=== PATIENT | male | born 1995 | race Caucasian/White ===

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

== ENCOUNTER 2017-08-18 23:25 | Inpatient (IN) | payer BC, OTHER ==
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
[2017-08-19 01:26] LABS: Amphetamine Screen,Urine Detected (NotDetected); Barbiturate Screen,Urine Not Detected (NotDetected); Benzodiazepines Screen,Urine Not Detected (NotDetected); Cocaine Screen,Urine Not Detected (NotDetected); Methadone Screen, Urine Not Detected (NotDetected); Opiate Screen,Urine Not Detected (NotDetected); Oxycodone Screen, Urine Not Detected (NotDetected); Phencyclidine Screen,Urine Not Detected (NotDetected); Tricyclic Antidepressant,Urine Not Detected (NotDetected); Urn Cannabinoid Scrn Detected (NotDetected)
[2017-08-19 06:21] VITALS: RESP 16
[2017-08-19] MEDS ORDERED: ZIPRASIDONE 20 MG VIAL IM PRN (09:29)
[2017-08-19] MEDS ORDERED: ACETAMINOPHEN TAB 325 MG TAB PO PRN (09:29)
[2017-08-19] MEDS ORDERED: MAG HYDROX/AL HYDROX/SIMETH 30 ML CUP PO PRN (09:29)
[2017-08-19] MEDS ORDERED: LORazepam 1 MG TAB PO PRN (09:29)
[2017-08-19] MEDS ORDERED: MAGNESIUM HYDROXIDE 2,400 MG/10 ML CUP PO PRN (09:29)
[2017-08-19] MEDS ORDERED: IBUPROFEN 600 MG TAB PO PRN (11:19)
[2017-08-19] MEDS: NICOTINE 21MG/24HR PATCH TRANSDERM SCH (12:31)
--- NOTE | 2017-08-19 15:13 | XR ---
Right hand and right wrist HISTORY: Trauma and pain 3 views of the right hand, 4 views of the right wrist submitted. Small bony excrescence at the level of the physis of the distal right radius at the metaphysis is tho ught to be well-corticated and not likely to be acute, correlate for point tenderness. There is no ev ident dislocation. Alignment, bone mineralization are otherwise maintained. IMPRESSION: Correlate for point tenderness distal radius lateral aspect as described. Bone scan or MR I may be of benefit to assess for nondisplaced fracture. Consider follow-up in 7-10 days as indicated to assess for fracture healing..
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
[2017-08-19] MEDS: busPIRone HCl 5 MG TAB PO SCH (20:18)
[2017-08-20] MEDS: busPIRone HCl 5 MG TAB PO SCH ×2 (08:56→20:48)
[2017-08-20] MEDS: NICOTINE 21MG/24HR PATCH TRANSDERM SCH (08:56)
[2017-08-20 09:39] LABS: Basophils % (A) 1 %; Eosinophils # (A) 0.1 k/uL (0-0.7); Eosinophils % (A) 1 %; HCT 51.2 % (39.0-53.0); HGB 17.5 gm/dL (13.0-17.5); Lymphocytes % (A) 29 %; MCH 31.4 pg (25.0-35.0); MCHC 34.3 g/dL (31.0-37.0); MCV 91.8 fL (80.0-100.0); Mean Platelet Volume 6.7; Monocytes # (A) 0.4 k/uL (0-1.0); Monocytes % (A) 6 %; Neutrophils # (A) 4.3 k/uL (1.3-7.7); Neutrophils % (A) 62 %; Platelet Count 276 k/uL (150-450); RBC 5.58 m/uL (4.30-5.90); RDW 13.1 % (11.5-15.5)
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
[2017-08-20 09:55] LABS: ALT 39 U/L (21-72); AST 36 U/L (17-59); Albumin 4.9 g/dL (3.5-5.0); Alkaline Phosphatase 92 U/L (38-126); Anion Gap 9 mmol/L; Blood Urea Nitrogen 15 mg/dL (9-20); Calcium 10.2 mg/dL (8.4-10.2); Carbon Dioxide 26 mmol/L (22-30); Chloride 105 mmol/L (98-107); Cholesterol 162 mg/dL (<200); Glucose 91 mg/dL (74-99); HDL Cholesterol 73 mg/dL (40-60); LDL Cholesterol,Calculated 70 mg/dL (0-99); Potassium 4.7 mmol/L (3.5-5.1); Sodium 140 mmol/L (137-145); Total Bilirubin 1.2 mg/dL (0.2-1.3); Total Protein 7.5 g/dL (6.3-8.2); Triglycerides 97 mg/dL (<150)
[2017-08-20] MEDS: THIAMINE 100 MG TAB PO SCH (12:15)
[2017-08-20 18:18] LABS: Hemoglobin A1C 4.9 % (4.0-6.0)
[2017-08-21 06:27] VITALS: BP 90/46; PULSE 44; TEMP 97.9
[2017-08-21] MEDS: NICOTINE 21MG/24HR PATCH TRANSDERM SCH (08:18)
[2017-08-21] MEDS: busPIRone HCl 5 MG TAB PO SCH (08:18)
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
[2017-08-21] MEDS: THIAMINE 100 MG TAB PO SCH (12:12)
== END 2017-08-21 13:51 | disposition home or self-care (01) | DRG 885 ==
LOC: EC 23:25 → 3MHU 08-19 09:23
PROVIDERS: ADMIT Psychiatry & Neurology Psychiatry; ATTEND Psychiatry & Neurology Psychiatry
DX: F39 Unspecified mood [affective] disorder (principal); S52.513A Displaced fracture of unspecified radial styloid process, initial encounter for closed fracture; R45.851 Suicidal ideations; F17.200 Nicotine dependence, unspecified, uncomplicated; F41.1 Generalized anxiety disorder; F90.9 Attention-deficit hyperactivity disorder, unspecified type; Z79.899 Other long term (current) drug therapy; Z80.1 Family history of malignant neoplasm of trachea, bronchus and lung; Z80.3 Family history of malignant neoplasm of breast; Z88.2 Allergy status to sulfonamides; Z91.018 Allergy to other foods
CPT/HCPCS: 80053; 80061; 80306; 82075; 83036; 84443; 85025; 99285

== ENCOUNTER 2022-08-24 17:30 | Emergency (ER) | payer BC ==
[2022-08-24] MEDS ORDERED: KETOROLAC 15 MG/ML 1 ML VIAL IM STA (18:02)
--- NOTE | 2022-08-24 18:52 | US ---
EXAMINATION TYPE: US scrotum with doppler. Grayscale and color Doppler Duplex imaging performed of t elías scrotum. DATE OF EXAM: 08/24/2022 COMPARISON: NONE CLINICAL INDICATION: Male, 27 years old with history of L testicular pain; L testicular and groin tali n x 3 days after heavy lifting EXAM MEASUREMENTS: TESTICLES: Right Testicle: 4.5 x 3.1 x 2.6 cm Left Testicle: 4.6 x 2.9 x 2.2 cm EPIDIDYMIS HEAD: Right Epididymis: 1.0 cm Left Epididymis: 1.0 cm Doppler performed to assess for testicular vascularity; good bilateral color flow and waveforms are s een. There is no evidence of testicular torsion. Presence of hydroceles: Small on the left side Presence of varicoceles: Small on the right side. Veins appear more dilated on the left side in juarez scale. IMPRESSION: 1. No evidence for testicular torsion. 2. Small hydroceles bilaterally. 3. Mild varicoceles bilaterally.
[2022-08-24 19:00] VITALS: TEMP 98
[2022-08-24] MEDS ORDERED: HYDROcodone/APAP 7.5-325MG 1 EACH TAB PO ONE (19:28)
--- NOTE | 2022-08-24 19:37 | ED ---
Male Urogenital HPI - General Chief complaint: Urogenital Stated complaint: hernia Time Seen by Provider: 08/24/22 17:53 Source: patient Mode of arrival: ambulatory Limitations: no limitations - History of Present Illness Initial comments: 27-year-old male presenting with chief complaint of right testicular pain. He states that the pain started 2 days ago. He notes that prior to the pain starting he was lifting a heavy objects at work. Patient has no history of hernia. No dysuria, hematuria, discharge, redness, swelling, warmth, groin pain. Denies any sexual partners. - Related Data Previous Rx's Medication Instructions Recorded Nicotine 21Mg/24Hr Patch [Habitrol] 1 patch TRANSDERM DAILY #10 patch 08/21/17 busPIRone HCL 10 mg PO BID #60 tab 08/21/17 Allergies Allergy/AdvReac Type Severity Reaction Status Date / Time macadamia nut oil Allergy Unknown Verified 08/24/22 17:43 Sulfa (Sulfonamide Allergy Unknown Verified 08/24/22 17:43 Antibiotics) Review of Systems ROS Statement: Those systems with pertinent positive or pertinent negative responses have been documented in the HPI. ROS Other: All systems not noted in ROS Statement are negative. Past Medical History Past Medical History: Asthma History of Any Multi-Drug Resistant Organisms: None Reported Past Surgical History: No Surgical Hx Reported Additional Past Surgical History / Comment(s): Repair of third digit of left hand due to injury involving loss of finger, discectomy 2020 Past Anesthesia/Blood Transfusion Reactions: No Reported Reaction Past Psychological History: ADD/ADHD Smoking Status: Current every day smoker Past Alcohol Use History: Occasional Past Drug Use History: Marijuana - Past Family History Father History Unknown: Yes Additional Family Medical History / Comment(s): Family hx of Breast CA, Lung CA, and skin CA General Exam Limitations: no limitations General appearance: alert, in no apparent distress Head exam: Present: atraumatic, normocephalic, normal inspection Eye exam: Present: normal appearance Neck exam: Present: normal inspection, full ROM Respiratory exam: Present: normal lung sounds bilaterally. Absent: respiratory distress, wheezes, rales, rhonchi, stridor Cardiovascular Exam: Present: regular rate, normal rhythm, normal heart sounds. Absent: systolic murmur, diastolic murmur, rubs, gallop, clicks exam: Present: normal inspection, testicular tenderness. Absent: urethral discharge, scrotal swelling Neurological exam: Present: alert, oriented X3, CN II-XII intact Psychiatric exam: Present: normal affect, normal mood Skin exam: Present: warm, dry, intact, normal color. Absent: rash Course Vital Signs 08/24/22 08/24/22 08/24/22 17:41 18:59 20:41 Temperature 98.7 F 98 F 98 F Pulse Rate 79 75 78 Respiratory 18 16 18 Rate Blood Pressure 119/73 121/84 122/74 O2 Sat by Pulse 98 98 98 Oximetry Medical Decision Making - Medical Decision Making Was pt. sent in by a medical professional or institution (, PA, MEAT LOINER, urgent care, hospital, or senior living...) When possible be specific @ -[No] Did you speak to anyone other than the patient for history (EMS, parent, family, police, friend...)? What history was obtained from this source @ -[No] Did you review nursing and triage notes (agree or disagree)? Why? @ -[I reviewed and agree with nursing and triage notes] Were old charts reviewed (outside hosp., previous admission, EMS record, old EKG, old radiological studies, urgent care reports/EKG's, senior living records)? Report findings @ -[No old charts were reviewed] Differential Diagnosis (chest pain, altered mental status, abdominal pain women, abdominal pain men, vaginal bleeding, weakness, fever, dyspnea, syncope, headache, dizziness, GI bleed, back pain, seizure, CVA, palpatations, mental health, musculoskeletal)? @ -Differential includes testicular torsion, varicocele, hydrocele, epididymitis, abscess, hernia, this is not an all inclusive list EKG interpreted by me (3pts min.). @ -[As above] X-rays interpreted by me (1pt min.). @ -[None done] CT interpreted by me (1pt min.). @ -[None done] U/S interpreted by me (1pt. min.). @ -Ultrasound shows hydrocele and varicoceles, no evidence of torsion What testing was considered but not performed or refused? (CT, X-rays, U/S, labs)? Why? @ -[None] What meds were considered but not given or refused? Why? @ -[None] Did you discuss the management of the patient with other professionals (professionals i.e. DrHailee, PA, MEAT LOINER, lab, RT, psych nurse, psychotherapist social worker, continuum of care manager, teacher, chief fundraising officer, rn case manager hospice)? Give summary @ -[No] Was smoking cessation discussed for >3mins.? @ -[No] Was critical care preformed (if so, how long)? @ -[No] Were there social determinants of health that impacted care today? How? (Homelessness, low income, unemployed, alcoholism, drug addiction, transportation, low edu. Level, literacy, decrease access to med. care, [facility], rehab)? @ -[No] Was there de-escalation of care discussed even if they declined (Discuss DNR or withdrawal of care, Hospice)? DNR status @ -[No] What co-morbidities impacted this encounter? (DM, HTN, Smoking, COPD, CAD, Cancer, CVA, ARF, Chemo, Hep., AIDS, mental health diagnosis, sleep apnea, morbid obesity)? @ -[None] Was patient admitted / discharged? Hospital course, mention meds given and route, prescriptions, significant lab abnormalities, going to OR and other pertinent info. @ -27-year-old male presenting with chief complaint of left-sided testicular pain ongoing for 2 days. On physical examination there is tenderness, no erythema, induration, high riding testicle. Ultrasound is negative for torsion, there are varicoceles and hydrocele seen. Urine shows no infectious process. Patient is educated on today's findings. Educated on supportive management at home and is provided with urology follow-up as needed. Follow-up with PCP. Report back to ER with any new or worsening symptoms. Discussed return parameters and answered all questions. Patient conveyed verbal understanding and agreed to the plan. I discussed this case in detail with my attending Dr. Juan Undiagnosed new problem with uncertain prognosis? @ -[No] Drug Therapy requiring intensive monitoring for toxicity (Heparin, Nitro, Insulin, Cardizem)? @ -[No] Were any procedures done? @ -[No] Diagnosis/symptom? @ Hydrocele and varicoceles] Acute, or Chronic, or Acute on Chronic? @ Acute] Uncomplicated (without systemic symptoms) or Complicated (systemic symptoms)? @ uncomplicated] Side effects of treatment? @ -[No] Exacerbation, Progression, or Severe Exacerbation? @ -[No] Poses a threat to life or bodily function? How? (Chest pain, [place], SD, pneumonia, PE, COPD, DKA, ARF, appy, cholecystitis, CVA, Diverticulitis, Homicidal, Suicidal, threat to staff... and all critical care pts) @ -[No] - Lab Data Lab Results 08/24/22 Range/Units 19:43 Urine Color Yellow Urine Appearance Clear (Clear) Urine pH 7.0 (5.0-8.0) Ur Specific Keyser 1.022 (1.001-1.035) Urine Protein Trace H (Negative) Urine Glucose (UA) Negative (Negative) Urine Ketones Negative (Negative) Urine Blood Negative (Negative) Urine Nitrite Negative (Negative) Urine Bilirubin Negative (Negative) Urine Urobilinogen 3.0 (<2.0) mg/dL Ur Leukocyte Esterase Negative (Negative) Disposition Clinical Impression: Varicocele, Hydrocele Disposition: HOME SELF-CARE Condition: Good Instructions (If sedation given, give patient instructions): Hydrocele (ED), Varicocele (ED), Testicle Pain (ED) Additional Instructions: Follow-up with PCP. Follow up with urology if needed. Report back to ER with any new or worsening symptoms. Take Motrin and Tylenol as needed for pain control. Is patient prescribed a controlled substance at d/c from ED?: No Referrals: None,Stated [Primary Care Provider] - 1-2 days Braden Gifford MD [STAFF PHYSICIAN] - 1-2 days Time of Disposition: 20:25
[2022-08-24 20:23] LABS: Appearance,Urine Clear (Clear); Bilirubin,Urine Negative (Negative); Blood,Urine Negative (Negative); Color,Urine Yellow; Glucose,Urine (UA) Negative (Negative); Ketones,Urine Negative (Negative); Leukocyte Esterase,Urine Negative (Negative); Nitrite,Urine Negative (Negative); Protein,Urine Trace (Negative); Specific Gravity,Urine 1.022 (1.001-1.035)
[2022-08-24 20:41] VITALS: BP 122/74; PULSE 78; RESP 18
== END 2022-08-24 20:41 | disposition home or self-care (01) ==
LOC: EC 17:30
DX: N43.3 Hydrocele, unspecified (principal); I86.1 Scrotal varices; J45.909 Unspecified asthma, uncomplicated; F17.200 Nicotine dependence, unspecified, uncomplicated; F12.90 Cannabis use, unspecified, uncomplicated; Z88.2 Allergy status to sulfonamides; Z91.018 Allergy to other foods
CPT/HCPCS: 81003; 93975; 76870; 99284; 96372; J1885

== ENCOUNTER 2022-11-12 18:44 | Emergency (ER) | payer BC ==
[2022-11-12] MEDS ORDERED: KETOROLAC 15 MG/ML 1 ML VIAL IM STA (19:19)
[2022-11-12 19:34] VITALS: BP 132/75; PULSE 96; RESP 16; TEMP 98
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
--- NOTE | 2022-11-12 19:55 | XR ---
EXAMINATION TYPE: XR cervical spine comp DATE OF EXAM: 11/12/2022 7:37 PM CLINICAL INDICATION:Male, 27 years old with history of left shoulder/neck pain; COMPARISON: None TECHNIQUE: The cervical spine was imaged in frontal, lateral, odontoid and bilateral oblique. FINDINGS: Postsurgical changes to the spine at C5-C6 hardware appears intact. There is minimal degene ration with osteophyte formation. The osseous structures show normal alignment without evidence of an acute fracture. Pedicles are intact. Soft tissues are within normal limits. The odontoid appears in tact. IMPRESSION: 1. No fracture or dislocation. 2. Postsurgical changes with minimal degenerative disc disease changes of the cervical spine.
--- NOTE | 2022-11-12 19:55 | XR ---
EXAMINATION TYPE: XR shoulder complete LT DATE OF EXAM: 11/12/2022 7:37 PM CLINICAL INDICATION:Male, 27 years old with history of left shoulder/neck pain; [facility] COMPARISON: None TECHNIQUE: XR shoulder complete LT; shoulder was examined in AP, internally rotated and scapular Y p rojections. FINDINGS: No evidence of acute osseous pathology, joint dislocation, or soft tissue swelling. The remaining por tions of the visualized chest are unremarkable. IMPRESSION: No acute osseous pathology.
== END 2022-11-12 20:49 | disposition home or self-care (01) ==
LOC: EC 18:44
DX: M25.512 Pain in left shoulder (principal); M54.2 Cervicalgia; J45.909 Unspecified asthma, uncomplicated; F17.200 Nicotine dependence, unspecified, uncomplicated; F12.90 Cannabis use, unspecified, uncomplicated; Z88.2 Allergy status to sulfonamides; Z88.8 Allergy status to other drugs, medicaments and biological substances
CPT/HCPCS: 72050; 73030; 99283; 96372; J1885

== ENCOUNTER 2024-04-24 18:23 | Inpatient (IN) | payer BC ==
--- NOTE | 2024-04-24 19:21 | ED ---
Neck Injury/Pain HPI - General Chief Complaint: Neck Pain/Injury Stated Complaint: Neck pain Time Seen by Provider: 04/24/24 19:04 Source: RN notes reviewed, old records reviewed Mode of arrival: ambulatory Limitations: no limitations - History of Present Illness Initial Comments: This is a 28-year-old male to the ER for severe neck pain anterior neck pain right-sided neck pain redness tenderness swelling, patient does feel feverish sore throat unable to eat or drink because he has so much pain in his throat MD Complaint: neck pain, neck injury (Patient does have a scratch on his anterior neck unsure of how he got it) -: days(s) Place: home Radiation: right lateral, right shoulder Severity: severe Severity scale (1-10): 6 Quality: burning, sharp, aching Consistency: constant Improves With: none Associated Symptoms: fever Treatments Prior to Arrival: none - Related Data Previous Rx's Medication Instructions Recorded Amoxic-Pot Clav 875-125Mg 1 tab PO Q12HR 10 Days #20 tab 04/30/24 [Augmentin 875-125] HYDROcodone/APAP 5-325MG [Waldron 1 each PO Q4HR PRN #18 tab 04/30/24 5-325] Linezolid [Zyvox] 600 mg PO Q12H #20 tab 04/30/24 Allergies Allergy/AdvReac Type Severity Reaction Status Date / Time macadamia nut oil Allergy Unknown Verified 04/30/24 14:43 Sulfa (Sulfonamide Allergy Unknown Verified 04/30/24 14:43 Antibiotics) Childhood Review of Systems ROS Statement: Those systems with pertinent positive or pertinent negative responses have been documented in the HPI. ROS Other: All systems not noted in ROS Statement are negative. Past Medical History Past Medical History: Asthma History of Any Multi-Drug Resistant Organisms: None Reported Past Surgical History: No Surgical Hx Reported Additional Past Surgical History / Comment(s): Repair of third digit of left hand due to injury involving loss of finger, discectomy 2020 Past Anesthesia/Blood Transfusion Reactions: No Reported Reaction Past Psychological History: ADD/ADHD Smoking Status: Current every day smoker Past Alcohol Use History: Occasional Past Drug Use History: Marijuana - Past Family History Father History Unknown: Yes Additional Family Medical History / Comment(s): Family hx of Breast CA, Lung CA, and skin CA General Exam Limitations: no limitations General appearance: alert, in no apparent distress, anxious Head exam: Present: atraumatic, normocephalic, normal inspection Eye exam: Present: normal appearance, PERRL, EOMI. Absent: scleral icterus, conjunctival injection, periorbital swelling ENT exam: Present: normal exam, other (Significant swelling redness erythema and tenderness to the right aspect of his neck) Neck exam: Present: tenderness, lymphadenopathy. Absent: meningismus, full ROM Respiratory exam: Present: normal lung sounds bilaterally. Absent: respiratory distress, wheezes, rales, rhonchi, stridor Cardiovascular Exam: Present: normal rhythm, tachycardia, normal heart sounds. Absent: systolic murmur, diastolic murmur, rubs, gallop, clicks GI/Abdominal exam: Present: soft, normal bowel sounds. Absent: distended, tenderness, guarding, rebound, rigid Extremities exam: Present: normal inspection, full ROM, normal capillary refill. Absent: tenderness, pedal edema, joint swelling, calf tenderness Back exam: Present: normal inspection Neurological exam: Present: alert, oriented X3, CN II-XII intact Psychiatric exam: Present: normal affect, normal mood Skin exam: Present: warm, dry, intact, normal color. Absent: rash Course Vital Signs 04/24/24 04/24/24 04/24/24 18:55 20:45 22:12 Temperature 99.7 F H 99.3 F Pulse Rate 112 H 82 65 Respiratory 18 15 17 Rate Blood Pressure 112/59 130/58 122/59 O2 Sat by Pulse 98 96 96 Oximetry 04/25/24 04/25/24 04/25/24 02:18 05:27 05:33 Temperature 98.7 F 100.6 F H Pulse Rate 85 88 Respiratory 16 18 Rate Blood Pressure 112/65 141/73 O2 Sat by Pulse 98 97 Oximetry 04/25/24 04/25/24 04/25/24 06:41 09:00 13:51 Temperature 98.6 F 98.6 F Pulse Rate 71 78 Respiratory 18 18 Rate Blood Pressure 118/54 116/74 O2 Sat by Pulse 98 98 Oximetry - Reevaluation(s) Reevaluation #1: 04/24/24 20:11 Medical records reviewed Reevaluation #2: 04/24/24 20:11 Patient symptoms improved Reevaluation #3: Patient informed of results and questions answered Reevaluation #4: Was pt. sent in by a medical professional or institution ([facility], [employer]EL[employer], urgent care, hospital, or longterm...) When possible be specific @ -no Did you speak to anyone other than the patient for history (EMS, parent, family, police, friend...)? What history was obtained from this source @ -no Did you review nursing and triage notes (agree or disagree)? Why? @ -agree Are old charts reviewed (outside hosp., previous admission, EMS record, old EKG, old radiological studies, urgent care reports/EKG's, longterm records)? Report findings @ -yes Differential Diagnosis (chest pain, altered mental status, abdominal pain women, abdominal pain men, vaginal bleeding, weakness, fever, dyspnea, syncope, headache, dizziness, GI bleed, back pain, seizure, CVA, palpatations, mental health, musculoskeletal)? @ -prior EKG interpreted by me (3pts min.). @ -yes X-rays interpreted by me (1pt min.). @ -no CT interpreted by me (1pt min.). @ -Yes positive for significant right-sided neck cellulitis U/S interpreted by me (1pt. min.). @ -no What testing was considered but not performed or refused? (CT, X-rays, U/S, labs)? Why? @ -none What meds were considered but not given or refused? Why? @ -none Did you discuss the management of the patient with other professionals (professionals i.e. [facility] Andujar, TEAMSITE DEVELOPER, lab, RT, psych nurse, social service director, application performance engineer, teacher, environmental officer, special education case manager)? Give summary @ -no Was smoking cessation discussed for >3mins.? @ -no Was critical care preformed (if so, how long)? @ -no Were there social determinants of health that impacted care today? How? (Homelessness, low income, unemployed, alcoholism, drug addiction, transportation, low edu. Level, literacy, decrease access to med. care, alf, re hab)? @ -none Was there de-escalation of care discussed even if they declined (Discuss DNR or withdrawal of care, Hospice)? DNR status @ -no What co-morbidities impacted this encounter? (DM, HTN, Smoking, COPD, CAD, Cancer, CVA, ARF, Chemo, Hep., AIDS, mental health diagnosis, sleep apnea, morbid obesity)? @ -none Was patient admitted / discharged? Hospital course, mention meds given and route, prescriptions, significant lab abnormalities, going to OR and other pertinent info. @ - 28 male with neck pain swelling redness erythema tenderness pain severe feels feverish, patient does have significant cellulitis to the neck, patient does have a scratch there is unsure of how that happened. Could be because of infection. Patient placed on IV antibiotics and admitted for surgical evaluation regarding further treatment Admitted Undiagnosed new problem with uncertain prognosis? @ -no Drug Therapy requiring intensive monitoring for toxicity (Heparin, Nitro, Insulin, Cardizem)? @ -no Were any procedures done? @ -no Diagnosis/symptom? @ -Significant neck pain, cellulitis Acute, or Chronic, or Acute on Chronic? @ -Acute Uncomplicated (without systemic symptoms) or Complicated (systemic symptoms)? @ -Complicated Side effects of treatment? @ -no Exacerbation, Progression, or Severe Exacerbation? @ -exacerbation Poses a threat to life or bodily function? How? (Chest pain, [place], [place], pneumonia, PE, COPD, DKA, ARF, appy, cholecystitis, CVA, Diverticulitis, Homicidal, Suicidal, threat to staff... and all critical care pts) @ -yes severe in for Reevaluation #5: Differential Fever: Pneumonia, viral URI, endocarditis, myocarditis, pericarditis, otitis, s inusitis, peritonsillar Abscess, retropharyngeal Abscess, epiglottitis, peritonitis, appendicitis, Sunitha cystitis, diverticulitis, hepatitis, colitis, UTI, PID, TOA, pyelonephritis, prostatitis, epididymitis, meningitis, encephalitis, pulmonary embolism, CVA, thyroid storm, pancreatitis, adrenal cri sis, cavernous sinus thrombosis, this is not meant to be an all-inclusive list. - Consultations Consultation #1: Spoke with admitting physicians who agreed this admission Medical Decision Making - Medical Decision Making 28 male with neck pain swelling redness erythema tenderness pain severe feels feverish, patient does have significant cellulitis to the neck, patient does have a scratch there is unsure of how that happened. Could be because of infection. Patient placed on IV antibiotics and admitted for surgical evaluation regarding further treatment - Lab Data Result diagrams: 04/30/24 05:12 04/30/24 05:12 Lab Results 04/24/24 04/24/24 04/24/24 Range/Units 19:50 19:50 19:50 WBC 37.3 H (3.8-10.6) k/uL RBC 5.15 (4.30-5.90) m/uL Hgb 15.5 (13.0-17.5) gm/dL Hct 44.8 (39.0-53.0) % MCV 87.0 (80.0-100.0) fL MCH 30.1 (25.0-35.0) pg MCHC 34.5 (31.0-37.0) g/dL RDW 12.8 (11.5-15.5) % Plt Count 230 (150-450) k/uL MPV 7.3 Neutrophils % 95 % Lymphocytes % 2 % Monocytes % 3 % Eosinophils % 1 % Basophils % 0 % Neutrophils # 35.4 H (1.3-7.7) k/uL Lymphocytes # 0.7 L (1.0-4.8) k/uL Monocytes # 1.0 (0-1.0) k/uL Eosinophils # 0.2 (0-0.7) k/uL Basophils # 0.0 (0-0.2) k/uL Manual Slide Review Performed PT 12.4 (10.0-12.5) sec INR 1.1 (<1.2) APTT 23.5 (22.0-30.0) sec Sodium 135 L (137-145) mmol/L Potassium 4.0 (3.5-5.1) mmol/L Chloride 102 (98-107) mmol/L Carbon Dioxide 20 L (22-30) mmol/L Anion Gap 13 mmol/L BUN 12 (9-20) mg/dL Creatinine 1.02 (0.66-1.25) mg/dL Est GFR (CKD-EPI)AfAm >90 (>60 ml/min/1.73 sqM) Est GFR (CKD-EPI)NonAf >90 (>60 ml/min/1.73 sqM) Glucose 123 H (74-99) mg/dL Plasma Lactic Acid Brady (0.7-2.0) mmol/L Calcium 9.8 (8.4-10.2) mg/dL Phosphorus 2.2 L (2.5-4.5) mg/dL Magnesium 1.8 (1.6-2.3) mg/dL Total Bilirubin 0.7 (0.2-1.3) mg/dL AST 22 (17-59) U/L ALT 15 (4-49) U/L Alkaline Phosphatase 89 (38-126) U/L Troponin I (0.000-0.034) ng/mL C-Reactive Protein 18.0 H (<1.0) mg/dL NT-Pro-B Natriuret Pep 449 pg/mL Total Protein 7.0 (6.3-8.2) g/dL Albumin 4.4 (3.5-5.0) g/dL 04/24/24 04/24/24 04/24/24 Range/Units 19:50 19:50 19:50 WBC (3.8-10.6) k/uL RBC (4.30-5.90) m/uL Hgb (13.0-17.5) gm/dL Hct (39.0-53.0) % MCV (80.0-100.0) fL MCH (25.0-35.0) pg MCHC (31.0-37.0) g/dL RDW (11.5-15.5) % Plt Count (150-450) k/uL MPV Neutrophils % % Lymphocytes % % Monocytes % % Eosinophils % % Basophils % % Neutrophils # (1.3-7.7) k/uL Lymphocytes # (1.0-4.8) k/uL Monocytes # (0-1.0) k/uL Eosinophils # (0-0.7) k/uL Basophils # (0-0.2) k/uL Manual Slide Review PT (10.0-12.5) sec INR (<1.2) APTT (22.0-30.0) sec Sodium (137-145) mmol/L Potassium (3.5-5.1) mmol/L Chloride (98-107) mmol/L Carbon Dioxide (22-30) mmol/L Anion Gap mmol/L BUN (9-20) mg/dL Creatinine 0.99 (0.66-1.25) mg/dL Est GFR (CKD-EPI)AfAm >90 (>60 ml/min/1.73 sqM) Est GFR (CKD-EPI)NonAf >90 (>60 ml/min/1.73 sqM) Glucose (74-99) mg/dL Plasma Lactic Acid Brady 1.6 (0.7-2.0) mmol/L Calcium (8.4-10.2) mg/dL Phosphorus (2.5-4.5) mg/dL Magnesium (1.6-2.3) mg/dL Total Bilirubin (0.2-1.3) mg/dL AST (17-59) U/L ALT (4-49) U/L Alkaline Phosphatase (38-126) U/L Troponin I <0.012 (0.000-0.034) ng/mL C-Reactive Protein (<1.0) mg/dL NT-Pro-B Natriuret Pep pg/mL Total Protein (6.3-8.2) g/dL Albumin (3.5-5.0) g/dL - EKG Data -: EKG Interpreted by Me (EKG sinus 97 IL 143 QRS 104 QTc 386) - Radiology Data Radiology results: report reviewed (CT soft tissue neck positive for fat stranding cellulitis), image reviewed Disposition Clinical Impression: Neck pain, Cellulitis, neck, Alcohol use disorder Disposition: ADMITTED IP TO THIS HOSP Condition: Fair Is patient prescribed a controlled substance at d/c from ED?: No Time of Disposition: 21:40
[2024-04-24] MEDS: LACTATED RINGERS 1,000 ML IV SCH (19:48)
[2024-04-24] MEDS: KETOROLAC 15 MG/ML 1 ML VIAL IVP STA (19:48)
[2024-04-24] MEDS: ACETAMINOPHEN IV (For NPO) 1,000 MG in EMPTY BAG 1 BAG IVPB STA (19:50)
[2024-04-24 20:14] LABS: INR 1.1 (<1.2); Partial Thromboplastin Time 23.5 sec (22.0-30.0); Prothrombin Time 12.4 sec (10.0-12.5)
[2024-04-24 20:20] LABS: Basophils % (A) 0 %; Eosinophils # (A) 0.2 k/uL (0-0.7); Eosinophils % (A) 1 %; HCT 44.8 % (39.0-53.0); HGB 15.5 gm/dL (13.0-17.5); Lymphocytes # (A) 0.7 k/uL (1.0-4.8); Lymphocytes % (A) 2 %; MCH 30.1 pg (25.0-35.0); MCHC 34.5 g/dL (31.0-37.0); Mean Platelet Volume 7.3; Monocytes % (A) 3 %; Neutrophils # (A) 35.4 k/uL (1.3-7.7); Neutrophils % (A) 95 %; Platelet Count 230 k/uL (150-450); RBC 5.15 m/uL (4.30-5.90); RDW 12.8 % (11.5-15.5); WBC 37.3 k/uL (3.8-10.6)
[2024-04-24 20:21] LABS: ALT 15 U/L (4-49); AST 22 U/L (17-59); African American GFR (CKD) >90 (>60 ml/min/1.73 sqM); Albumin 4.4 g/dL (3.5-5.0); Alkaline Phosphatase 89 U/L (38-126); Anion Gap 13 mmol/L; Blood Urea Nitrogen 12 mg/dL (9-20); Calcium 9.8 mg/dL (8.4-10.2); Carbon Dioxide 20 mmol/L (22-30); Chloride 102 mmol/L (98-107); Glucose 123 mg/dL (74-99); Magnesium 1.8 mg/dL (1.6-2.3); Non-African American GFR(CKD) >90 (>60 ml/min/1.73 sqM); Phosphorus 2.2 mg/dL (2.5-4.5); Sodium 135 mmol/L (137-145); Total Bilirubin 0.7 mg/dL (0.2-1.3)
[2024-04-24 20:27] LABS: NT-Pro-B-Type Natriuretic Pept 449 pg/mL
[2024-04-24] MEDS ORDERED: VANCOMYCIN IV PER PHARMACY 1 EACH MISC MISCELLANE PRN (20:39)
[2024-04-24] MEDS: MORPHINE SULFATE 4 MG/ML SYRINGE IVP STA (20:46)
[2024-04-24] MEDS: AMPICILLIN-SULBACTAM 3 GM in SODIUM CHLORIDE 0.9% 100 ML IVPB STA (21:17)
[2024-04-24] MEDS: VANCOMYCIN 1,500 MG in SODIUM CHLORIDE 0.9% 500 ML 500 ML IVPB ONE (22:00)
--- NOTE | 2024-04-25 00:10 | CT ---
EXAM: CT Neck With Intravenous Contrast CLINICAL HISTORY: ITS.REASON CT Reason: R neck pain TECHNIQUE: Axial computed tomography images of the neck with intravenous contrast. CTDI is 11.4 mGy and DLP is 304.9 mGy-cm. This CT exam was performed using one or more of the following dose reduction techniques: automated exposure control, adjustment of the mA and/or kV according to patient size, and/or use of iterative reconstruction technique. COMPARISON: No relevant prior studies available. FINDINGS: Nasal cavity/septum: Unremarkable. Nasopharynx: Unremarkable. Oropharynx: Prominent faucial and lingual tonsils. No peritonsillar abscess. Hypopharynx: Unremarkable. Larynx: Unremarkable. Normal epiglottis. Trachea: Unremarkable. Retropharyngeal space: Unremarkable. Submandibular/parotid glands: Unremarkable. Glands are normal in size. Thyroid: Unremarkable. No enlarged or calcified nodules. Bones/joints: No acute fracture. Intervertebral disc replacement at C5-6. Soft tissues: Moderate subcutaneous fat stranding over the right anterior and lateral cervical soft tissues. Vasculature: No acute findings. Lymph nodes: Unremarkable. No lymphadenopathy. Sinuses: Unremarkable as visualized. No acute sinusitis. Lung apices: Unremarkable as visualized. IMPRESSION: Moderate subcutaneous fat stranding of the right anterior and lateral cervical soft tissues without evidence of abscess or drainable fluid collection. Prominent Faucial and lingual with prominent cervical lymph nodes. No evidence of peritonsillar abscess.
--- NOTE | 2024-04-25 00:16 | P.HPIM ---
History of Present Illness H&P Date: 04/24/24 Chief Complaint: right neck swelling 28-year-old male no significant past medical history Patient coming in for evaluation of severe pain of his neck with right-sided neck swelling and erythema patient claims that this happened overnight he would not be able to tell what precipitated this episode however 1 week ago he had flulike symptoms with sore throat and runny nose. However overnight he started having the symptoms of neck stiffness with increasing pain and progressed into increased swelling and erythema for which she decided to come in for evaluation he denies any trouble swallowing or breathing denies any photophobia denies any headache denies any injuries he does report history of neck surgery in the past. He does admit to cocaine abuse in = the past however he claims to be clean for a while now review of systems Pertinent positives as noted in HPI. All other systems were reviewed and are negative on exam Constitutional: Patient seems uncomfortable stressed out because minimal talking due to pain in his neck Eyes: Anicteric sclerae, moist conjunctiva, Pupils equal round reactive to light ENMT: NC/AT Oropharynx clear, no erythema, or exudates Neck: Erythema and swelling over the right side of the neck tender to palpation warm to the touch not draining no open wounds, patient seems to be stiff holding position due to painful range of motion of the neck Lungs: Clear to auscultation Clear to percussion Normal respiratory effort, no accessory muscle use Cardiovascular: Heart regular in rate and rhythm, No murmurs, gallops, or rubs No peripheral edema Abdominal: Soft Nontender, no guarding, rebound or rigidity Abdomen moving with respiration Normoactive bowel sounds Extremities: No digital cyanosis No clubbing Pedal pulses intact and symmetrical Radial pulses intact and symmetrical No calf tenderness Psychiatric: Alert and oriented to person, place and time Appropriate affect fair judgement Neuro Muscles Strength 5/5 in all 4 extremities Sensation to light touch grossly present throughout Cranial nerves II-XII grossly intact Past Medical History Past Medical History: Asthma History of Any Multi-Drug Resistant Organisms: None Reported Past Surgical History: No Surgical Hx Reported Additional Past Surgical History / Comment(s): Repair of third digit of left hand due to injury involving loss of finger, discectomy 2020 Past Anesthesia/Blood Transfusion Reactions: No Reported Reaction Past Psychological History: ADD/ADHD Smoking Status: Current every day smoker Past Alcohol Use History: Occasional Past Drug Use History: Marijuana - Past Family History Father History Unknown: Yes Additional Family Medical History / Comment(s): Family hx of Breast CA, Lung CA, and skin CA Medications and Allergies Home Medications Medication Instructions Recorded Confirmed Type Nicotine 21Mg/24Hr Patch [Habitrol] 1 patch TRANSDERM DAILY #10 patch 08/21/17 Rx busPIRone HCL 10 mg PO BID #60 tab 08/21/17 Rx Allergies Allergy/AdvReac Type Severity Reaction Status Date / Time macadamia nut oil Allergy Unknown Verified 08/24/22 17:43 Sulfa (Sulfonamide Allergy Unknown Verified 08/24/22 17:43 Antibiotics) Physical Exam Vitals: Vital Signs Temp Pulse Resp BP Pulse Ox 04/24/24 22:12 99.3 F 65 17 122/59 96 04/24/24 20:45 82 15 130/58 96 04/24/24 18:55 99.7 F H 112 H 18 112/59 98 Intake and Output 04/24/24 04/24/24 04/25/24 14:59 22:59 06:59 Other: Weight 81.647 kg Results CBC & Chem 7: 04/24/24 19:50 04/24/24 19:50 Labs: Abnormal Lab Results - Last 24 Hours (Table) 04/24/24 04/24/24 Range/Units 19:50 19:50 WBC 37.3 H (3.8-10.6) k/uL Neutrophils # 35.4 H (1.3-7.7) k/uL Lymphocytes # 0.7 L (1.0-4.8) k/uL Sodium 135 L (137-145) mmol/L Carbon Dioxide 20 L (22-30) mmol/L Glucose 123 H (74-99) mg/dL Phosphorus 2.2 L (2.5-4.5) mg/dL C-Reactive Protein 18.0 H (<1.0) mg/dL Assessment and Plan Assessment: 28-year-old male with history of cocaine abuse coming in for evaluation of neck pain and erythema hide discussed case with ED doctor and accepted the admission for sepsis secondary to cellulitis of the neck with anticipated length stay more than 2 midnights Sepsis secondary to cellulitis of the right side of the neck CT scan of the neck soft tissue is pending Follow-up cultures Patient empirically started on vancomycin dosing by pharmacy Tylenol IV as needed for fevers IV fluid hydration with normal saline 2 L boluses sepsis protocol, continue with 130 cc/h Empirically start Unasyn 3 g IV piggyback every 6 hours, if CT scan of the neck shows no abscess collection then discontinue Elevated white count 37.3 elevated CRP 18 Pain control with morphine 4 mg IV push every 4 hours as needed Full code DVT prophylaxis Lovenox subcu 40 mg daily GI prophylaxis Protonix 40 mg IV push daily Renal function unremarkable BUN 12 creatinine 1
[2024-04-25] MEDS ORDERED: VANCOMYCIN IV PER PHARMACY 1 EACH MISC MISCELLANE PRN (00:20)
[2024-04-25] MEDS: KETOROLAC 15 MG/ML 1 ML VIAL IVP PRN (00:25)
[2024-04-25] MEDS: SODIUM CHLORIDE 0.9% 1,000 ML IV SCH ×2 (00:26→00:54)
[2024-04-25 03:24] LABS: African American GFR (CKD) >90 (>60 ml/min/1.73 sqM); Non-African American GFR(CKD) >90 (>60 ml/min/1.73 sqM)
[2024-04-25] MEDS: AMPICILLIN-SULBACTAM 3 GM in SODIUM CHLORIDE 0.9% 100 ML IVPB SCH ×2 (04:41→20:34)
[2024-04-25] MEDS: MORPHINE SULFATE 4 MG/ML SYRINGE IVP PRN (05:30)
[2024-04-25] MEDS: ACETAMINOPHEN IV (For NPO) 1,000 MG in EMPTY BAG 1 BAG IVPB PRN (05:51)
[2024-04-25] MEDS: VANCOMYCIN 1,500 MG in SODIUM CHLORIDE 0.9% 500 ML 500 ML IVPB SCH (05:51)
[2024-04-25 08:50] LABS: HCT 41.4 % (39.0-53.0); HGB 13.7 gm/dL (13.0-17.5); MCH 29.6 pg (25.0-35.0); MCV 89.7 fL (80.0-100.0); Platelet Count 186 k/uL (150-450); RBC 4.62 m/uL (4.30-5.90)
[2024-04-25] MEDS: PANTOPRAZOLE 40 MG TABLET PO SCH (09:20)
[2024-04-25] MEDS: ENOXAPARIN 40 MG/0.4 ML SYRINGE SQ SCH (09:20)
[2024-04-25 09:22] LABS: ALT 18 U/L (4-49); AST 30 U/L (17-59); African American GFR (CKD) >90 (>60 ml/min/1.73 sqM); Albumin/Globulin Ratio 1.3; Alkaline Phosphatase 76 U/L (38-126); Anion Gap 5 mmol/L; Blood Urea Nitrogen 10 mg/dL (9-20); Calcium 8.7 mg/dL (8.4-10.2); Carbon Dioxide 24 mmol/L (22-30); Chloride 106 mmol/L (98-107); Globulin 2.4 g/dL; Glucose 107 mg/dL (74-99); Magnesium 1.9 mg/dL (1.6-2.3); Non-African American GFR(CKD) >90 (>60 ml/min/1.73 sqM); Potassium 3.9 mmol/L (3.5-5.1); Sodium 135 mmol/L (137-145); Total Bilirubin 0.5 mg/dL (0.2-1.3); Total Protein 5.4 g/dL (6.3-8.2)
[2024-04-25 09:32] LABS: C Reactive Protein 26.7 mg/dL (<1.0)
[2024-04-25 11:16] LABS: Amphetamine Screen,Urine Not Detected (NotDetected); Barbiturate Screen,Urine Not Detected (NotDetected); Benzodiazepines Screen,Urine Not Detected (NotDetected); Cocaine Screen,Urine Not Detected (NotDetected); Methadone Screen, Urine Not Detected (NotDetected); Opiate Screen,Urine Detected (NotDetected); Oxycodone Screen, Urine Not Detected (NotDetected); Phencyclidine Screen,Urine Not Detected (NotDetected); Tricyclic Antidepressant,Urine Not Detected (NotDetected); Urn Cannabinoid Scrn Detected (NotDetected)
[2024-04-25 15:21] LABS: Erythrocyte Sedimentation Rate 17 mm/Hr (0-15)
--- NOTE | 2024-04-25 16:06 | P.CONS ---
History of Present Illness - Reason for Consult Consult date: 04/25/24 Cellulitis neck, sepsis Requesting physician: Rainer Geiger - Chief Complaint Right-sided neck pain and swelling x 1 day - History of Present Illness Patient is a 28-year male with a past medical history significant for asthma ADHD currently everyday smoker presenting to the hospital for evaluation of right-sided neck swelling and redness that apparently happened overnight patient mentioned started a small pimple and has subsequently got bigger in size very quickly patient been complaining of pain to be sharp almost 10 of 10 in severity without any radiation he did have more pain on movement of the neck did have chills on presentation the hospital he did have a fever of 99.7 degrees for night subsequent temperature of 100.6 F patient was tachycardic but not hypotensive or hypoxic no need for supplemental oxygen he did have white count of 37.0 admission which is down to 23,000 creatinine 0.80 electrolytes are normal liver enzymes normal patient did tested positive for opiates and marijuana did have a CT of the soft tissue of the neck mention moderate subcutaneous fat stranding on the right anterior and lateral cervical soft tissue without any evidence of abscess or drainable fluid patient has been treated with vancomycin and Unasyn infectious he was consulted for further management of antibiotic therapy Review of Systems Positive point and negatives has been mentioned in the HPI, complete review of systems was performed and all other systems are negative Past Medical History Past Medical History: Asthma History of Any Multi-Drug Resistant Organisms: None Reported Past Surgical History: No Surgical Hx Reported Additional Past Surgical History / Comment(s): Repair of third digit of left hand due to injury involving loss of finger, discectomy 2020 Past Anesthesia/Blood Transfusion Reactions: No Reported Reaction Past Psychological History: ADD/ADHD Smoking Status: Current every day smoker Past Alcohol Use History: Occasional Past Drug Use History: Marijuana - Past Family History Father History Unknown: Yes Additional Family Medical History / Comment(s): Family hx of Breast CA, Lung CA, and skin CA Medications and Allergies Home Medications Medication Instructions Recorded Confirmed Type No Known Home Medications 04/25/24 04/25/24 History Allergies Allergy/AdvReac Type Severity Reaction Status Date / Time macadamia nut oil Allergy Unknown Verified 04/25/24 08:05 Sulfa (Sulfonamide Allergy Unknown Verified 04/25/24 08:05 Antibiotics) Childhood Physical Exam Vitals: Vital Signs Temp Pulse Resp BP Pulse Ox 04/25/24 09:00 71 18 118/54 98 04/25/24 06:41 98.6 F 04/25/24 05:33 88 18 141/73 97 04/25/24 05:27 100.6 F H 04/25/24 02:18 98.7 F 85 16 112/65 98 04/24/24 22:12 99.3 F 65 17 122/59 96 04/24/24 20:45 82 15 130/58 96 04/24/24 18:55 99.7 F H 112 H 18 112/59 98 Intake and Output 04/24/24 04/25/24 04/25/24 22:59 06:59 14:59 Other: Weight 81.647 kg GENERAL DESCRIPTION: Male lying in bed, no distress. No tachypnea or accessory muscle of respiration use. HEENT: Shows Pallor , no scleral icterus. Oral mucous membrane is dry. NECK: Right side of the neck area did have swelling redness which is warm and tender to touch and small areas of follicle LUNGS: Unlabored breathing. Clear to auscultation anteriorly. No wheeze or crackle. HEART: S1, S2, regular rate and rhythm. No loud murmur ABDOMEN: Soft, no tenderness , EXTREMITIES: No edema of feet. SKIN: No rash, no masses palpable. NEUROLOGICAL: The patient is awake, alert, oriented x3, mood and affect normal. Results CBC & Chem 7: 04/25/24 08:28 04/25/24 08:28 Labs: Abnormal Lab Results - Last 24 Hours (Table) 04/24/24 04/24/24 04/25/24 Range/Units 19:50 19:50 08:28 WBC 37.3 H 23.0 H (3.8-10.6) k/uL Neutrophils # 35.4 H (1.3-7.7) k/uL Lymphocytes # 0.7 L (1.0-4.8) k/uL Sodium 135 L (137-145) mmol/L Carbon Dioxide 20 L (22-30) mmol/L Glucose 123 H (74-99) mg/dL Phosphorus 2.2 L (2.5-4.5) mg/dL C-Reactive Protein 18.0 H (<1.0) mg/dL Total Protein (6.3-8.2) g/dL Albumin (3.5-5.0) g/dL Urine Opiates Screen (NotDetected) U Marijuana (THC) Screen (NotDetected) 04/25/24 04/25/24 Range/Units 08:28 08:30 WBC (3.8-10.6) k/uL Neutrophils # (1.3-7.7) k/uL Lymphocytes # (1.0-4.8) k/uL Sodium 135 L (137-145) mmol/L Carbon Dioxide (22-30) mmol/L Glucose 107 H (74-99) mg/dL Phosphorus (2.5-4.5) mg/dL C-Reactive Protein 26.7 H (<1.0) mg/dL Total Protein 5.4 L (6.3-8.2) g/dL Albumin 3.0 L (3.5-5.0) g/dL Urine Opiates Screen Detected H (NotDetected) U Marijuana (THC) Screen Detected H (NotDetected) Assessment and Plan (1) Sepsis Current Visit: Yes Status: Acute Code(s): A41.9 - SEPSIS, UNSPECIFIED ORGANISM SNOMED Code(s): 30787300 (2) Cellulitis, neck Current Visit: Yes Status: Acute Code(s): L03.221 - CELLULITIS OF NECK SNOMED Code(s): 64587918 Plan: 1patient presented hospital with sepsis in this patient noted to have fever tachycardia elevated white count meeting criteria for SIRS source is likely right-sided neck cellulitis started a small pimple more likely representing staphylococcal cellulitis without evidence of abscess seen on the CT 2patient will be empirically treated with vancomycin Unasyn dose adjusted up to 3 g every 6 hours Question concern answered We will follow on clinical condition and cultures to further adjust medication if needed Thank you for this consultation we will follow the patient along with you Dictation was produced using [employer] dictation software. please excuse any grammatical, word or spelling errors. Time with Patient: Greater than 30
--- NOTE | 2024-04-25 18:47 | P.PN ---
Subjective Progress Note Date: 04/25/24 Hospital course: Patient is a pleasant 28-year-old male with a past medical history of ADHD, nicotine dependence, and occasional cannabis use. He presented to the emergency department with a chief complaint of right sided neck pain, redness, and swelling that appeared overnight. Upon arrival to our facility patient underwent evaluation in the emergency department. Vital signs upon arrival show blood pressure 112/59, heart rate 112, respiratory rate 18, temp 99.7 F, and SpO2 of 98% on room air. Labs completed and reviewed. CBC showing significant leukocytosis with WBC count of 37.3. Coagulation profile normal findings. BMP showing sodium 135, bicarb of 20, and elevated anion gap of 13. Blood glucose was 123. Lactic acid 1.6. Liver profile normal findings. Magnesium 1.8. Troponin was negative at less than 0.012. Initial CRP 18.0. Urine drug screen positive for opiates and marijuana only. CT neck with IV contrast revealing moderate subcutaneous fat stranding of the right anterior and lateral cervical soft tissues without evidence of localized abscess or drainable fluid collection. Patient mated under services with consultation to infectious disease and ENT. Physical exam: Vital signs reviewed and stable. General: Nontoxic, no distress and appears stated age. Derm: Skin warm and dry, normal coloration for ethnicity. Right lateral neck positive for erythema, swelling, extending down into right clavicular region. Head: Atraumatic, normocephalic and symmetric. Eyes: EOM's intact, no lid lag, and anicteric sclera Mouth: no lip lesions, mucus membranes moist Cardiovascular: regular rate and rhythm with normal S1S2, no murmur, positive posterior tibial pulses bilaterally, and cap refill < 2 seconds. Lungs: Respirations even, regular, and unlabored on room air. Lungs CTA bilaterally, no rhonchi, no rales, no wheezing, and no accessory muscle usage. Abdominal: soft, nontender to palpation, no guarding, no appreciable organomegaly Ext: ROM intact. No gross muscle atrophy, no edema, no contractures Neuro: Speech clear, face symmetrical and CN II-XII grossly intact with no noted focal neuro deficits Psych: Alert and oriented to person, place, time, and situation. Appropriate and pleasant affect. Assessment and Plan of Care: Cellulitis right lateral neck Sepsis, secondary to above -Infectious disease following, discussed plan of care with Dr. Loco. -Consult placed to ENT for evaluation. -Continue symptomatic care and pain management with Tylenol 1000 mg every 6 hours as needed for mild pain/fever, Toradol 15 mg IVP every 6 hours as needed for moderate pain, and morphine 4 mg IVP as needed for severe pain. -Continue gentle IV fluid hydration with 0.9% normal saline at 130 cc/h. -GI prophylaxis with Protonix. -DVT prophylaxis with Lovenox. -Continue IV antibiotics with vancomycin 1500 mg every 8 hours and Unasyn 3 g every 6 hours. Closely monitor renal function and vancomycin 12 for any signs of vancomycin associated renal toxicity. -Aspiration precautions -Monitor pulse oximetry. -Follow-up on blood cultures. Nicotine dependence -Recommend smoking cessation. Continue nicotine patch 14 mg daily. Data and imaging reviewed: -Vital signs reviewed. Blood pressure 141/73, heart rate 88, respiratory rate 18, temp 100.6 F, and SpO2 of 97% on room air. -Repeat morning labs completed. CBC showing continued leukocytosis at 23.00. elevated ESR of 17, CRP of 26.7,. CODE STATUS: Full code DVT prophylaxis: Lovenox Discussed with: Patient, patient's family at bedside, RN, and infectious disease physician. Anticipated discharge date: Pending clinical course Anticipated discharge place: Home Patient was seen independently by Nurse Pracitioner. This document was prepared using [employer] dictation software. Please allow for errors in methods analyst, while rare they do occur. Objective - Vital Signs Vital signs: Vital Signs Temp 98.6 F 04/25/24 06:41 Pulse 88 04/25/24 05:33 Resp 18 04/25/24 05:33 BP 141/73 04/25/24 05:33 Pulse Ox 97 04/25/24 05:33 FiO2 Intake & Output 04/24/24 04/25/24 04/25/24 18:59 06:59 18:59 Weight 81.647 kg - Labs CBC & Chem 7: 04/25/24 08:28 04/25/24 08:28 Labs: Abnormal Lab Results - Last 24 Hours (Table) 04/24/24 04/24/24 Range/Units 19:50 19:50 WBC 37.3 H (3.8-10.6) k/uL Neutrophils # 35.4 H (1.3-7.7) k/uL Lymphocytes # 0.7 L (1.0-4.8) k/uL Sodium 135 L (137-145) mmol/L Carbon Dioxide 20 L (22-30) mmol/L Glucose 123 H (74-99) mg/dL Phosphorus 2.2 L (2.5-4.5) mg/dL C-Reactive Protein 18.0 H (<1.0) mg/dL
[2024-04-25] MEDS: NICOTINE 14MG/24HR PATCH TRANSDERM SCH (20:39)
[2024-04-26 05:01] LABS: ALT 20 U/L (4-49); AST 24 U/L (17-59); African American GFR (CKD) >90 (>60 ml/min/1.73 sqM); Albumin 2.8 g/dL (3.5-5.0); Albumin/Globulin Ratio 1.2; Alkaline Phosphatase 98 U/L (38-126); Anion Gap 7 mmol/L; Blood Urea Nitrogen 9 mg/dL (9-20); Calcium 8.4 mg/dL (8.4-10.2); Carbon Dioxide 20 mmol/L (22-30); Chloride 108 mmol/L (98-107); Globulin 2.4 g/dL; Glucose 114 mg/dL (74-99); Magnesium 1.9 mg/dL (1.6-2.3); Non-African American GFR(CKD) >90 (>60 ml/min/1.73 sqM); Potassium 3.9 mmol/L (3.5-5.1); Sodium 135 mmol/L (137-145); Total Bilirubin 0.4 mg/dL (0.2-1.3); Total Protein 5.2 g/dL (6.3-8.2)
[2024-04-26] MEDS: VANCOMYCIN 1,250 MG in SODIUM CHLORIDE 0.9% 250 ML IVPB SCH (05:33)
[2024-04-26] MEDS: VANCOMYCIN TROUGH DUE 1 EACH MISC MISCELLANE ONE (05:40)
[2024-04-26 09:51] LABS: HCT 37.8 % (39.6-50.0); HGB 12.7 g/dL (13.0-17.0); MCHC 33.6 g/dL (32.0-37.0); MCV 89.2 FL (80.0-97.0); Mean Platelet Volume 9.7 FL (9.5-12.2); NRBC Per 100 WBC 0 X 10*3/uL (0.00-0.01); Platelet Count 198 X 10*3/uL (140-440); RBC 4.24 X 10*6/uL (4.40-5.60); RDW 13.4 % (11.5-14.5)
--- NOTE | 2024-04-26 15:39 | P.PN ---
Subjective Progress Note Date: 04/26/24 Principal diagnosis: Reason for follow-up is neck cellulitis Patient is a 28-year male with a past medical history significant for asthma ADHD currently everyday smoker presenting to the hospital for evaluation of right-sided neck swelling and redness that apparently happened overnight patient mentioned started a small pimple subsequently being significant cellulitis to the right side of the neck CT was negative for any abscess. On today's evaluation that is 04/26/2024, patient did have resolution of his fever with a low-grade fever of 99.1 this afternoon patient right-sided neck swelling and pain has slightly decreased denies any chest pain shortness of breath or cough no abdominal pain or diarrhea. The patient white count is 20,000 creatinine 0.79 cultures are currently pending Objective - Vital Signs Vital signs: Vital Signs Temp 99.2 F 04/26/24 07:00 Pulse 85 04/26/24 07:00 Resp 19 04/26/24 07:00 BP 150/53 04/26/24 07:00 Pulse Ox 100 04/26/24 07:00 FiO2 Intake & Output 04/25/24 04/26/24 04/26/24 18:59 06:59 18:59 Weight 81.647 kg Other: Voiding Method Toilet # Voids 2 - Exam GENERAL DESCRIPTION: An elderly male lying in bed in no distress HEENT: Right-sided neck redness has slightly decreased RESPIRATORY SYSTEM: Unlabored breathing , decreased breath sounds at bases HEART: S1 S2 regular rate and rhythm , ABDOMEN: Soft , no tenderness EXTREMITIES: No edema feet - Labs CBC & Chem 7: 04/26/24 04:05 04/26/24 04:05 Labs: Abnormal Lab Results - Last 24 Hours (Table) 04/25/24 04/26/24 04/26/24 Range/Units 08:28 04:05 04:05 WBC 20.00 H (4.50-10.00) X 10*3/uL RBC 4.24 L (4.40-5.60) X 10*6/uL Hgb 12.7 L (13.0-17.0) g/dL Hct 37.8 L (39.6-50.0) % ESR 17 H (0-15) mm/Hr Sodium 135 L (137-145) mmol/L Chloride 108 H (98-107) mmol/L Carbon Dioxide 20 L (22-30) mmol/L Glucose 114 H (74-99) mg/dL Total Protein 5.2 L (6.3-8.2) g/dL Albumin 2.8 L (3.5-5.0) g/dL Microbiology - Last 24 Hours (Table) 04/24/24 19:45 Blood Culture - Preliminary Blood Assessment and Plan (1) Sepsis Current Visit: Yes Status: Acute Code(s): A41.9 - SEPSIS, UNSPECIFIED ORGANISM SNOMED Code(s): 86433733 (2) Cellulitis, neck Current Visit: Yes Status: Acute Code(s): L03.221 - CELLULITIS OF NECK SNOMED Code(s): 54640860 Plan: 1patient presented hospital with sepsis in this patient noted to have fever tachycardia elevated white count meeting criteria for SIRS source is likely right-sided neck cellulitis started a small pimple more likely representing staphylococcal cellulitis without evidence of abscess seen on the CT 2patient did have resolution of his fever and the white count is trending down we will continue the patient on Unasyn and vancomycin and monitor clinical course closely Dictation was produced using [employer] dictation software. please excuse any grammatical, word or spelling errors. Time with Patient: Less than 30
[2024-04-26] MEDS ORDERED: ACETAMINOPHEN TAB 325 MG TAB PO PRN (16:43)
--- NOTE | 2024-04-26 16:48 | P.PN ---
Subjective Progress Note Date: 04/26/24 Hospital course: Patient is a pleasant 28-year-old male with a past medical history of ADHD, nicotine dependence, and occasional cannabis use. He presented to the emergency department with a chief complaint of right sided neck pain, redness, and swelling that appeared overnight. Upon arrival to our facility patient underwent evaluation in the emergency department. Vital signs upon arrival show blood pressure 112/59, heart rate 112, respiratory rate 18, temp 99.7 F, and SpO2 of 98% on room air. Labs completed and reviewed. CBC showing significant leukocytosis with WBC count of 37.3. Coagulation profile normal findings. BMP showing sodium 135, bicarb of 20, and elevated anion gap of 13. Blood glucose was 123. Lactic acid 1.6. Liver profile normal findings. Magnesium 1.8. Troponin was negative at less than 0.012. Initial CRP 18.0. Urine drug screen positive for opiates and marijuana only. CT neck with IV contrast revealing moderate subcutaneous fat stranding of the right anterior and lateral cervical soft tissues without evidence of localized abscess or drainable fluid collection. Patient mated under services with consultation to infectious disease and ENT. Physical exam: Patient seen and fully evaluated at bedside. He continues to report moderate pain to right lateral neck. Erythema remains, however redness slightly appears to have improved today. Patient denies having any difficulty swallowing or clearing secretions. Denies any other complaints or needs. Family at bedside, all questions answered at this time. Vital signs reviewed and stable. General: Nontoxic, no distress and appears stated age. Derm: Skin warm and dry, normal coloration for ethnicity. Right lateral neck positive for erythema, swelling, extending down into right clavicular region. Head: Atraumatic, normocephalic and symmetric. Eyes: EOM's intact, no lid lag, and anicteric sclera Mouth: no lip lesions, mucus membranes moist Cardiovascular: regular rate and rhythm with normal S1S2, no murmur, positive posterior tibial pulses bilaterally, and cap refill < 2 seconds. Lungs: Respirations even, regular, and unlabored on room air. Lungs CTA bilaterally, no rhonchi, no rales, no wheezing, and no accessory muscle usage. Abdominal: soft, nontender to palpation, no guarding, no appreciable organomegaly Ext: ROM intact. No gross muscle atrophy, no edema, no contractures Neuro: Speech clear, face symmetrical and CN II-XII grossly intact with no noted focal neuro deficits Psych: Alert and oriented to person, place, time, and situation. Appropriate and pleasant affect. Assessment and Plan of Care: Cellulitis right lateral neck Sepsis, secondary to above -Infectious disease following, discussed plan of care with Dr. Loco. -Consult placed to ENT for evaluation. -Continue symptomatic care and pain management with Tylenol 650 mg p.o. every 6 hours as needed for mild pain/fever, Toradol 15 mg IVP every 6 hours as needed for moderate pain, and morphine 4 mg IVP as needed for severe pain. -GI prophylaxis with Protonix. -DVT prophylaxis with Lovenox. -Continue IV antibiotics with vancomycin 1250 mg every 8 hours and Unasyn 3 g every 6 hours. Closely monitor renal function and vancomycin 12 for any signs of vancomycin associated renal toxicity. -Aspiration precautions -Monitor pulse oximetry. -Blood cultures showing no growth to date Nicotine dependence -Recommend smoking cessation. Continue nicotine patch 14 mg daily. Data and imaging reviewed: -Vital signs reviewed. Blood pressure 150/53, heart rate 85, respiratory rate 19, temp 99.2 F, and SpO2 of 100% on room air. Temperature high over the past 24 hours with 100.6. -Repeat morning labs completed. CBC showing continued but improved leukocytosis with WBC of 20.00 from initial 37.3. BMP showing sodium 135, chloride 108, bicarb 20 blood glucose of 114. Magnesium 1.9. Liver profile unremarkable. Vancomycin trough 17.8 CODE STATUS: Full code DVT prophylaxis: Lovenox Discussed with: Patient, patient's family at bedside, RN, and infectious disease physician. Anticipated discharge date: Pending clinical course Anticipated discharge place: Home Patient was seen independently by Nurse Pracitioner. This document was prepared using [facility] [employer] dictation software. Please allow for e rrors in fireman, while rare they do occur. Objective - Vital Signs Vital signs: Vital Signs Temp 99.2 F 04/26/24 07:00 Pulse 85 04/26/24 07:00 Resp 19 04/26/24 07:00 BP 150/53 04/26/24 07:00 Pulse Ox 100 04/26/24 07:00 FiO2 Intake & Output 04/25/24 04/26/24 04/26/24 18:59 06:59 18:59 Weight 81.647 kg Other: Voiding Method Toilet # Voids 2 - Labs CBC & Chem 7: 04/26/24 04:05 04/26/24 04:05 Labs: Abnormal Lab Results - Last 24 Hours (Table) 04/25/24 04/25/24 04/26/24 Range/Units 08:28 08:30 04:05 WBC (4.50-10.00) X 10*3/uL RBC (4.40-5.60) X 10*6/uL Hgb (13.0-17.0) g/dL Hct (39.6-50.0) % ESR 17 H (0-15) mm/Hr Sodium 135 L (137-145) mmol/L Chloride 108 H (98-107) mmol/L Carbon Dioxide 20 L (22-30) mmol/L Glucose 114 H (74-99) mg/dL Total Protein 5.2 L (6.3-8.2) g/dL Albumin 2.8 L (3.5-5.0) g/dL Urine Opiates Screen Detected H (NotDetected) U Marijuana (THC) Screen Detected H (NotDetected) 04/26/24 Range/Units 04:05 WBC 20.00 H (4.50-10.00) X 10*3/uL RBC 4.24 L (4.40-5.60) X 10*6/uL Hgb 12.7 L (13.0-17.0) g/dL Hct 37.8 L (39.6-50.0) % ESR (0-15) mm/Hr Sodium (137-145) mmol/L Chloride (98-107) mmol/L Carbon Dioxide (22-30) mmol/L Glucose (74-99) mg/dL Total Protein (6.3-8.2) g/dL Albumin (3.5-5.0) g/dL Urine Opiates Screen (NotDetected) U Marijuana (THC) Screen (NotDetected) Microbiology - Last 24 Hours (Table) 04/24/24 19:45 Blood Culture - Preliminary Blood
[2024-04-26] MEDS: HYDROcodone/APAP 5-325MG 1 EACH TAB PO PRN (17:45)
[2024-04-27 09:20] LABS: HGB 12.9 g/dL (13.0-17.0); MCH 30.4 pg (27.0-32.0); MCHC 33.9 g/dL (32.0-37.0); MCV 89.6 FL (80.0-97.0); Mean Platelet Volume 10.1 FL (9.5-12.2); NRBC Per 100 WBC 0 X 10*3/uL (0.00-0.01); Platelet Count 233 X 10*3/uL (140-440); RBC 4.24 X 10*6/uL (4.40-5.60); RDW 13.4 % (11.5-14.5); WBC 11.46 X 10*3/uL (4.50-10.00)
[2024-04-27 09:34] LABS: ALT 27 U/L (10-49); AST 21 U/L (14-35); Albumin 3.3 g/dL (3.8-4.9); Alkaline Phosphatase 124 U/L (41-126); BUN/Creat Ratio 9.86 Ratio (12.00-20.00); Blood Urea Nitrogen 6.9 mg/dL (9.0-27.0); Calcium 8.6 mg/dL (8.7-10.3); Chloride 111 mmol/L (96-109); Globulin 2.2 g/dL (1.6-3.3); Glucose 93 mg/dL (70-110); Magnesium 2.1 mg/dL (1.5-2.4); Potassium 4.1 mmol/L (3.5-5.5); Sodium 142 mmol/L (135-145); Total Bilirubin 0.3 mg/dL (0.3-1.2); Total Protein 5.5 g/dL (6.2-8.2)
--- NOTE | 2024-04-27 16:12 | P.PN ---
Subjective Progress Note Date: 04/27/24 Hospital course: Patient is a pleasant 28-year-old male with a past medical history of ADHD, nicotine dependence, and occasional cannabis use. He presented to the emergency department with a chief complaint of right sided neck pain, redness, and swelling that appeared overnight. Upon arrival to our facility patient underwent evaluation in the emergency department. Vital signs upon arrival show blood pressure 112/59, heart rate 112, respiratory rate 18, temp 99.7 F, and SpO2 of 98% on room air. Labs completed and reviewed. CBC showing significant leukocytosis with WBC count of 37.3. Coagulation profile normal findings. BMP showing sodium 135, bicarb of 20, and elevated anion gap of 13. Blood glucose was 123. Lactic acid 1.6. Liver profile normal findings. Magnesium 1.8. Troponin was negative at less than 0.012. Initial CRP 18.0. Urine drug screen positive for opiates and marijuana only. CT neck with IV contrast revealing moderate subcutaneous fat stranding of the right anterior and lateral cervical soft tissues without evidence of localized abscess or drainable fluid collection. Patient mated under services with consultation to infectious disease and ENT. Physical exam: Patient seen and fully evaluated at bedside. He continues to have moderate erythema to right lateral neck extending down into right clavicular region and chest. Swelling improving. Patient reports pain and ability to swallow also significantly improving today. He has remained afebrile for the last 24 hours with temperature high of 99.2 F. He denies having any headache, lightheadedness, dizziness, chest pain, palpitations, or shortness of breath. Patient reports he is tolerating oral intake without any difficulties. Vital signs reviewed and stable. General: Nontoxic, no distress and appears stated age. Derm: Skin warm and dry, normal coloration for ethnicity. Right lateral neck positive for erythema, swelling, extending down into right clavicular region and chest . Head: Atraumatic, normocephalic and symmetric. Eyes: EOM's intact, no lid lag, and anicteric sclera Mouth: no lip lesions, mucus membranes moist Cardiovascular: regular rate and rhythm with normal S1S2, no murmur, positive posterior tibial pulses bilaterally, and cap refill < 2 seconds. Lungs: Respirations even, regular, and unlabored on room air. Lungs CTA bilaterally, no rhonchi, no rales, no wheezing, and no accessory muscle usage. Abdominal: soft, nontender to palpation, no guarding, no appreciable organomegaly Ext: ROM intact. No gross muscle atrophy, no edema, no contractures Neuro: Speech clear, face symmetrical and CN II-XII grossly intact with no noted focal neuro deficits Psych: Alert and oriented to person, place, time, and situation. Appropriate and pleasant affect. Assessment and Plan of Care: Cellulitis right lateral neck Sepsis, secondary to above Leukocytosis, improving -Infectious disease following, discussed plan of care with Dr. Loco. -Consult placed to ENT for evaluation, Dr. Cuevas called and spoke with nurse on unit stating he will come in and evaluate if patient becomes a surgical candidate otherwise patient to follow-up in office -Continue symptomatic care and pain management with Tylenol 650 mg p.o. every 6 hours as needed for mild pain/fever, Toradol 15 mg IVP every 6 hours as needed for moderate pain, and morphine 4 mg IVP as needed for severe pain. -GI prophylaxis with Protonix. -DVT prophylaxis with Lovenox. -Continue IV antibiotics with vancomycin 1250 mg every 8 hours and Unasyn 3 g every 6 hours. Closely monitor renal function and vancomycin trough for any signs of vancomycin associated renal toxicity. -Aspiration precautions -Monitor pulse oximetry. -Blood cultures showing no growth to date Nicotine dependence -Recommend smoking cessation. Continue nicotine patch 14 mg daily. Data and imaging reviewed: -Vital signs reviewed. Blood pressure 113/71, heart rate 50, respiratory rate 16, temp 98.2 F, and SpO2 of 99% on room air. Temperature high over the past 24 hours was 99.2 F -Repeat morning labs completed. CBC showing continued but improved leukocytosis with WBC of 11.46 from initial 37.3. BMP showing showing mild hyperchloremia with chloride of 111 otherwise normal findings. Blood glucose 93. Magnesium 2.1. CODE STATUS: Full code DVT prophylaxis: Lovenox Discussed with: Patient, RN, and infectious disease physician. Anticipated discharge date: Pending clinical course Anticipated discharge place: Home Patient was seen independently by Nurse Pracitioner. This document was prepared using [employer] dictation software. Please allow for errors in electronic data interchange specialist, while rare they do occur. Objective - Vital Signs Vital signs: Vital Signs Temp 98.2 F 04/27/24 07:17 Pulse 50 L 04/27/24 07:17 Resp 16 04/27/24 07:17 BP 113/71 04/27/24 07:17 Pulse Ox 99 04/27/24 07:17 FiO2 Intake & Output 04/26/24 04/27/24 04/27/24 18:59 06:59 18:59 Intake Total 118 Balance 118 Intake: Oral 118 Other: Voiding Method Toilet # Voids 3 1 - Labs CBC & Chem 7: 04/27/24 04:55 04/27/24 04:55 Labs: Abnormal Lab Results - Last 24 Hours (Table) 04/26/24 04/27/24 04/27/24 Range/Units 04:05 04:55 04:55 WBC 20.00 H 11.46 H (4.50-10.00) X 10*3/uL RBC 4.24 L 4.24 L (4.40-5.60) X 10*6/uL Hgb 12.7 L 12.9 L (13.0-17.0) g/dL Hct 37.8 L 38.0 L (39.6-50.0) % Chloride 111 H (96-109) mmol/L BUN 6.9 L (9.0-27.0) mg/dL BUN/Creatinine Ratio 9.86 L (12.00-20.00) Ratio Calcium 8.6 L (8.7-10.3) mg/dL Total Protein 5.5 L (6.2-8.2) g/dL Albumin 3.3 L (3.8-4.9) g/dL Albumin/Globulin Ratio 1.50 L (1.60-3.17) Ratio Microbiology - Last 24 Hours (Table) 04/24/24 19:45 Blood Culture - Preliminary Blood
--- NOTE | 2024-04-27 16:35 | P.PN ---
Subjective Progress Note Date: 04/27/24 Principal diagnosis: Reason for follow-up is neck cellulitis Patient is a 28-year male with a past medical history significant for asthma ADHD currently everyday smoker presenting to the hospital for evaluation of right-sided neck swelling and redness that apparently happened overnight patient mentioned started a small pimple subsequently being significant cellulitis to the right side of the neck CT was negative for any abscess. On today's evaluation that is 04/27/2024, Patient is afebrile patient is currently on room air and denies having any shortness of breath, the patient denies any chest pain or cough, the patient denies any nausea vomiting did not have any abdominal pain and no diarrhea pain to the right side of neck has decreased in intensity. Patient white count down to 11.46, creatinine 0.7 blood culture remains to be negative Objective - Vital Signs Vital signs: Vital Signs Temp 98.2 F 04/27/24 07:17 Pulse 50 L 04/27/24 08:00 Resp 16 04/27/24 08:00 BP 113/71 04/27/24 07:17 Pulse Ox 99 04/27/24 07:17 FiO2 Intake & Output 04/26/24 04/27/24 04/27/24 18:59 06:59 18:59 Intake Total 118 Balance 118 Intake: Oral 118 Other: Voiding Method Toilet Toilet # Voids 3 1 - Exam GENERAL DESCRIPTION: An elderly male lying in bed in no distress HEENT: Right-sided neck redness has slightly decreased RESPIRATORY SYSTEM: Unlabored breathing , decreased breath sounds at bases HEART: S1 S2 regular rate and rhythm , ABDOMEN: Soft , no tenderness EXTREMITIES: No edema feet - Labs CBC & Chem 7: 04/27/24 04:55 04/27/24 04:55 Labs: Abnormal Lab Results - Last 24 Hours (Table) 04/27/24 04/27/24 Range/Units 04:55 04:55 WBC 11.46 H (4.50-10.00) X 10*3/uL RBC 4.24 L (4.40-5.60) X 10*6/uL Hgb 12.9 L (13.0-17.0) g/dL Hct 38.0 L (39.6-50.0) % Chloride 111 H (96-109) mmol/L BUN 6.9 L (9.0-27.0) mg/dL BUN/Creatinine Ratio 9.86 L (12.00-20.00) Ratio Calcium 8.6 L (8.7-10.3) mg/dL Total Protein 5.5 L (6.2-8.2) g/dL Albumin 3.3 L (3.8-4.9) g/dL Albumin/Globulin Ratio 1.50 L (1.60-3.17) Ratio Microbiology - Last 24 Hours (Table) 04/24/24 19:45 Blood Culture - Preliminary Blood Assessment and Plan (1) Sepsis Current Visit: Yes Status: Acute Code(s): A41.9 - SEPSIS, UNSPECIFIED ORGANISM SNOMED Code(s): 08270123 (2) Cellulitis, neck Current Visit: Yes Status: Acute Code(s): L03.221 - CELLULITIS OF NECK SNOMED Code(s): 52267777 Plan: 1patient presented hospital with sepsis in this patient noted to have fever tachycardia elevated white count meeting criteria for SIRS source is likely right-sided neck cellulitis started a small pimple more likely representing staphylococcal cellulitis without evidence of abscess seen on the CT 2patient did have resolution of his fever and the white count is trending down 3we will continue the patient on Unasyn and vancomycin for another 24 to 48 hours before transition to oral Dictation was produced using [employer] dictation software. please excuse any grammatical, word or spelling errors. Time with Patient: Less than 30
[2024-04-28] MEDS: VANCOMYCIN TROUGH DUE 1 EACH MISC MISCELLANE ONE (08:12)
[2024-04-28 08:46] LABS: MCH 29.9 pg (27.0-32.0); MCHC 33.3 g/dL (32.0-37.0); MCV 89.8 FL (80.0-97.0); Mean Platelet Volume 9.8 FL (9.5-12.2); NRBC Per 100 WBC 0 X 10*3/uL (0.00-0.01); Platelet Count 236 X 10*3/uL (140-440); RBC 4.01 X 10*6/uL (4.40-5.60); RDW 13.6 % (11.5-14.5); WBC 6.59 X 10*3/uL (4.50-10.00)
[2024-04-28 08:48] LABS: ALT 22 U/L (10-49); AST 16 U/L (14-35); Albumin 3.4 g/dL (3.8-4.9); Albumin/Globulin Ratio 1.62 Ratio (1.60-3.17); Alkaline Phosphatase 123 U/L (41-126); BUN/Creat Ratio 11.89 Ratio (12.00-20.00); Blood Urea Nitrogen 10.7 mg/dL (9.0-27.0); Calcium 8.5 mg/dL (8.7-10.3); Carbon Dioxide 23.9 mmol/L (21.6-31.8); Chloride 112 mmol/L (96-109); Globulin 2.1 g/dL (1.6-3.3); Glucose 86 mg/dL (70-110); Potassium 3.8 mmol/L (3.5-5.5); Sodium 145 mmol/L (135-145); Total Bilirubin 0.2 mg/dL (0.3-1.2); Total Protein 5.5 g/dL (6.2-8.2)
--- NOTE | 2024-04-28 13:16 | US ---
EXAMINATION TYPE: US thyroid st tissue head/neck DATE OF EXAM: 04/28/2024 COMPARISON: NONE CLINICAL INDICATION: Male, 28 years old with history of to assess for abscess right neck; Small pimpl e on right neck turned into cellulitis TECHNIQUE: Soft tissue neck scan grayscale and color Doppler imaging of the neck. FINDINGS: Extensive complex fluid collection seen under the skin in the right neck. There is vascularity extend ing to this region. No enlarged lymph nodes identified by manufacturing project engineer. Area measures at least up to 4 .7 cm and interdigitates soft tissue fascial planes. IMPRESSION: Right neck complex fluid collection which could be compatible with abscess. [facility], , 04/28/2024 1:14 PM
--- NOTE | 2024-04-28 16:39 | P.PN ---
Subjective Progress Note Date: 04/28/24 Hospital course: Patient is a pleasant 28-year-old male with a past medical history of ADHD, nicotine dependence, and occasional cannabis use. He presented to the emergency department with a chief complaint of right sided neck pain, redness, and swelling that appeared overnight. Upon arrival to our facility patient underwent evaluation in the emergency department. Vital signs upon arrival show blood pressure 112/59, heart rate 112, respiratory rate 18, temp 99.7 F, and SpO2 of 98% on room air. Labs completed and reviewed. CBC showing significant leukocytosis with WBC count of 37.3. Coagulation profile normal findings. BMP showing sodium 135, bicarb of 20, and elevated anion gap of 13. Blood glucose was 123. Lactic acid 1.6. Liver profile normal findings. Magnesium 1.8. Troponin was negative at less than 0.012. Initial CRP 18.0. Urine drug screen positive for opiates and marijuana only. CT neck with IV contrast revealing moderate subcutaneous fat stranding of the right anterior and lateral cervical soft tissues without evidence of localized abscess or drainable fluid collection. Patient mated under services with consultation to infectious disease and ENT. Urine drug screen was positive for opioids and marijuana, patient was given opioid medications during this hospitalization. Physical exam: Patient seen and fully evaluated at bedside. He continues to have moderate erythema to right lateral neck but has improved. Patient continues to have a small area of localized swelling, but states pain is improving to the site and he denies any difficulties with swallowing. Vital signs reviewed and stable. General: Nontoxic, no distress and appears stated age. Derm: Skin warm and dry, normal coloration for ethnicity. Right lateral neck positive for erythema, swelling, extending down into right clavicular region and chest . Head: Atraumatic, normocephalic and symmetric. Eyes: EOM's intact, no lid lag, and anicteric sclera Mouth: no lip lesions, mucus membranes moist Cardiovascular: regular rate and rhythm with normal S1S2, no murmur, positive posterior tibial pulses bilaterally, and cap refill < 2 seconds. Lungs: Respirations even, regular, and unlabored on room air. Lungs CTA bilaterally, no rhonchi, no rales, no wheezing, and no accessory muscle usage. Abdominal: soft, nontender to palpation, no guarding, no appreciable organomegaly Ext: ROM intact. No gross muscle atrophy, no edema, no contractures Neuro: Speech clear, face symmetrical and CN II-XII grossly intact with no noted focal neuro deficits Psych: Alert and oriented to person, place, time, and situation. Appropriate and pleasant affect. Assessment and Plan of Care: Cellulitis right lateral neck Sepsis, secondary to above Leukocytosis, improving -Infectious disease following, discussed plan of care with Dr. Loco. -Consult placed to ENT for evaluation, Dr. Cuevas called and spoke with nurse on unit stating he will come in and evaluate if patient becomes a surgical candidate otherwise patient to follow-up in office -Continue symptomatic care and pain management with Tylenol 650 mg p.o. every 6 hours as needed for mild pain/fever, Toradol 15 mg IVP every 6 hours as needed for moderate pain, and morphine 4 mg IVP as needed for severe pain. -GI prophylaxis with Protonix. -DVT prophylaxis with Lovenox. -Continue IV antibiotics with vancomycin 1250 mg every 8 hours and Unasyn 3 g every 6 hours. Closely monitor renal function and vancomycin trough for any s igns of vancomycin associated renal toxicity. -Aspiration precautions -Monitor pulse oximetry. -Blood cultures showing no growth to date Nicotine dependence -Recommend smoking cessation. Continue nicotine patch 14 mg daily. Data and imaging reviewed: -Vital signs reviewed. Blood pressure 113/71, heart rate 50, respiratory rate 16, temp 98.2 F, and SpO2 of 99% on room air. Temperature high over the past 24 hours was 99.2 F -Repeat morning labs completed. CBC showing normocytic anemia with 12.0. BMP showing hyperchloremia with chloride of 112. Blood glucose 86. Magnesium 2.0. Liver profile showing h a low total protein of 5.5 and albumin of 3.4. Vancomycin trough therapeutic at 13.9. CODE STATUS: Full code DVT prophylaxis: Lovenox Discussed with: Patient, RN, and infectious disease physician. Anticipated discharge date: Pending clinical course Anticipated discharge place: Home Patient was seen independently by Nurse Pracitioner. This document was prepared using [employer] dictation software. Please allow for errors in professor of theatre, while rare they do occur. Rainer Geiger NP rendered care for this patient independently, reviewed the findings and plan as documented in the note above and agree with plan. I did not physically speak with or examine the patient on this date. Objective - Vital Signs Vital signs: Vital Signs Temp 97.7 F 04/28/24 07:00 Pulse 40 L 04/28/24 07:00 Resp 14 04/28/24 07:00 BP 128/70 04/28/24 07:00 Pulse Ox 100 04/28/24 07:00 FiO2 Intake & Output 04/27/24 04/28/24 04/28/24 18:59 06:59 18:59 Other: Voiding Method Toilet Toilet # Voids 2 2 - Labs CBC & Chem 7: 04/28/24 05:19 04/28/24 05:19 Labs: Abnormal Lab Results - Last 24 Hours (Table) 04/27/24 04/27/24 Range/Units 04:55 04:55 WBC 11.46 H (4.50-10.00) X 10*3/uL RBC 4.24 L (4.40-5.60) X 10*6/uL Hgb 12.9 L (13.0-17.0) g/dL Hct 38.0 L (39.6-50.0) % Chloride 111 H (96-109) mmol/L BUN 6.9 L (9.0-27.0) mg/dL BUN/Creatinine Ratio 9.86 L (12.00-20.00) Ratio Calcium 8.6 L (8.7-10.3) mg/dL Total Protein 5.5 L (6.2-8.2) g/dL Albumin 3.3 L (3.8-4.9) g/dL Albumin/Globulin Ratio 1.50 L (1.60-3.17) Ratio Microbiology - Last 24 Hours (Table) 04/24/24 19:45 Blood Culture - Preliminary Blood
--- NOTE | 2024-04-28 16:41 | P.PN ---
Subjective Progress Note Date: 04/28/24 Principal diagnosis: Reason for follow-up is neck cellulitis Patient is a 28-year male with a past medical history significant for asthma ADHD currently everyday smoker presenting to the hospital for evaluation of right-sided neck swelling and redness that apparently happened overnight patient mentioned started a small pimple subsequently being significant cellulitis to the right side of the neck CT was negative for any abscess. On today's evaluation that is 04/28/2024, patient has been afebrile, patient is breathing comfortably and is currently on room air, patient denies having any significant cough no chest pain, patient denies nausea vomiting or diarrhea and no abdominal pain pain to the neck has decreased in intensity. The patient white count 6.59 creatinine 0.9 Objective - Vital Signs Vital signs: Vital Signs Temp 98 F 04/28/24 08:25 Pulse 41 L 04/28/24 08:25 Resp 18 04/28/24 08:25 BP 140/79 04/28/24 08:25 Pulse Ox 97 04/28/24 08:25 FiO2 Intake & Output 04/27/24 04/28/24 04/28/24 18:59 06:59 18:59 Other: Voiding Method Toilet Toilet # Voids 2 2 - Exam GENERAL DESCRIPTION: An elderly male lying in bed in no distress HEENT: Right-sided neck redness has slightly decreased however there is an area of induration more pronounced now RESPIRATORY SYSTEM: Unlabored breathing , decreased breath sounds at bases HEART: S1 S2 regular rate and rhythm , ABDOMEN: Soft , no tenderness EXTREMITIES: No edema feet - Labs CBC & Chem 7: 04/28/24 05:19 04/28/24 05:19 Labs: Abnormal Lab Results - Last 24 Hours (Table) 04/28/24 04/28/24 Range/Units 05:19 05:19 RBC 4.01 L (4.40-5.60) X 10*6/uL Hgb 12.0 L (13.0-17.0) g/dL Hct 36.0 L (39.6-50.0) % Chloride 112 H (96-109) mmol/L BUN/Creatinine Ratio 11.89 L (12.00-20.00) Ratio Calcium 8.5 L (8.7-10.3) mg/dL Total Bilirubin 0.2 L (0.3-1.2) mg/dL Total Protein 5.5 L (6.2-8.2) g/dL Albumin 3.4 L (3.8-4.9) g/dL Microbiology - Last 24 Hours (Table) 04/24/24 19:45 Blood Culture - Preliminary Blood Assessment and Plan (1) Sepsis Current Visit: Yes Status: Acute Code(s): A41.9 - SEPSIS, UNSPECIFIED ORGANISM SNOMED Code(s): 52661902 (2) Cellulitis, neck Current Visit: Yes Status: Acute Code(s): L03.221 - CELLULITIS OF NECK SNOMED Code(s): 28090972 Plan: 1patient presented hospital with sepsis in this patient noted to have fever tachycardia elevated white count meeting criteria for SIRS source is likely right-sided neck cellulitis started a small pimple more likely representing staphylococcal cellulitis without evidence of abscess seen on the CT 2patient did have resolution of his fever and the white count has normalized however the patient has an area of induration concerning for possible developing of an abscess 3we will obtain ultrasound of neck area to make sure no evidence of any abscess that may need to be drained and for now continue the patient on Unasyn and vancomycin discussed with the nursing staff Dictation was produced using [employer] dictation software. please excuse any grammatical, word or spelling errors. Time with Patient: Less than 30
--- NOTE | 2024-04-28 16:43 | CT ---
EXAMINATION TYPE: CT soft tissue neck w con DATE OF EXAM: 04/28/2024 4:34 PM COMPARISON: 04/24/2024. CLINICAL INDICATION: Male, 28 years old with history of Abscess; TECHNIQUE: Standard enhanced CT of the neck. Axial sections with coronal and sagittal reformats were obtained. Contrast used:100 mL of Isovue 300 , (None if empty) Oral contrast used: (None if empty) CT DLP: 280 mGycm, Automated exposure control for dose reduction was used. FINDINGS: Brain: Visualized portions are grossly unremarkable. Orbits: Unremarkable Sinuses: Grossly unremarkable. Spaces of the neck: Phlegmonous change in the right neck subcutaneous soft tissues. This extends down to the anterior upper chest wall and to the chin. No discrete fluid collection identified on CT.. Th ere may be mild improvement of the edema within the right neck. Musculoskeletal: No acute osseous pathology. Lymph nodes: Multiple nonenlarged lymph nodes are seen along both anterior chains of the neck. Vascular structures: Visualized major arteries are patent without evidence of aneurysm. Thoracic Inlet/airway: Airway is patent. The lung apices are clear. Soft tissues/Thyroid: Thyroid and remainder of the soft tissues are unremarkable. Other: none. IMPRESSION: Phlegmonous change and edema in the right neck extending down to the chest and up to the face. No dis crete organizing fluid collection seen on TV. Overall compared to 03/27/2022 5 Smaby mildly improved f rom that exam with decrease in edema. [facility], , 04/28/2024 4:41 PM
--- NOTE | 2024-04-29 15:47 | P.PN ---
Subjective Progress Note Date: 04/29/24 Principal diagnosis: Reason for follow-up is neck cellulitis Patient is a 28-year male with a past medical history significant for asthma ADHD currently everyday smoker presenting to the hospital for evaluation of right-sided neck swelling and redness that apparently happened overnight patient mentioned started a small pimple subsequently being significant cellulitis to the right side of the neck CT was negative for any abscess. On today's evaluation that is 04/29/2024, Patient is afebrile this morning patient denies having any chest pain shortness of breath or cough, the patient is currently on room air, patient denies any abdominal pain no diarrhea no nausea no vomiting pain and swelling to the negative has decreased intensity. Patient white count 6.59, creatinine 0.9 Objective - Vital Signs Vital signs: Vital Signs Temp 98.1 F 04/29/24 07:00 Pulse 56 L 04/29/24 07:00 Resp 16 04/29/24 07:00 BP 168/80 04/29/24 07:00 Pulse Ox 96 04/29/24 07:00 FiO2 Intake & Output 04/28/24 04/29/24 04/29/24 18:59 06:59 18:59 Intake Total 240 Balance 240 Intake: Oral 240 Other: Voiding Method Toilet Toilet Toilet # Voids 1 - Exam GENERAL DESCRIPTION: An elderly male lying in bed in no distress HEENT: Right-sided neck redness has slightly decreased however there is an area of induration more pronounced now RESPIRATORY SYSTEM: Unlabored breathing , decreased breath sounds at bases HEART: S1 S2 regular rate and rhythm , ABDOMEN: Soft , no tenderness EXTREMITIES: No edema feet - Labs CBC & Chem 7: 04/28/24 05:19 04/28/24 05:19 Assessment and Plan (1) Sepsis Current Visit: Yes Status: Acute Code(s): A41.9 - SEPSIS, UNSPECIFIED ORGANISM SNOMED Code(s): 05330703 (2) Cellulitis, neck Current Visit: Yes Status: Acute Code(s): L03.221 - CELLULITIS OF NECK SNOMED Code(s): 36073961 Plan: 1patient presented hospital with sepsis in this patient noted to have fever tachycardia elevated white count meeting criteria for SIRS source is likely right-sided neck cellulitis started a small pimple more likely representing staphylococcal cellulitis without evidence of abscess seen on the CT 2patient did have resolution of his fever and the white count has normalized however the patient has an area of induration concerning for possible developing of an abscess 3ultrasound of the neck suspicious for development of abscess, IR has been consulted for drainage fluid should be sent for culture continue with the Unasyn and vancomycin discussed with RESEARCH DEVELOPMENT MANAGER for admitting team Dictation was produced using [employer] dictation software. please excuse any grammatical, word or spelling errors. Time with Patient: Less than 30
--- NOTE | 2024-04-29 15:57 | US ---
EXAMINATION TYPE: Right neck complicated fluid collection ultrasound fine needle aspiration. DATE OF EXAM: 04/29/2024 3:39 PM COMPARISON: None. CLINICAL INDICATION: Male, 28 years old with history of See IR consult for ordering information; righ t neck fluid collection requested for aspiration., TECHNIQUE/FINDINGS: The procedure was explained to the patient. The risks, complications, benefits and alternatives were discussed and any questions were answered. Informed consent was obtained. Patient was placed supin e on the ultrasound table and prepped and draped in the usual sterile fashion. Utilizing a 18 gauge needle, pass was made into the applicator fluid collection. Only a small amount of aspirate could be obtained. This may be related to the complexity of fluid collection or organization of the fluid col lection. Patient was stable throughout the procedure. Pathology is pending. All elements of maximal barrier and sterile technique were utilized. IMPRESSION: 1. Successful ultrasound guided FNA soft tissue right neck fluid collection. Pathology pending. [facility], , 04/29/2024 3:55 PM
--- NOTE | 2024-04-29 16:05 | P.GSCN ---
History of Present Illness Consult date: 04/29/24 Reason for Consult: neck abscess History of present illness: Patient coming in for evaluation of severe pain of his neck with right-sided neck swelling and erythema patient claims that this happened overnight he would not be able to tell what precipitated this episode however 1 week ago he had flulike symptoms with sore throat and runny nose. However overnight he started having the symptoms of neck stiffness with increasing pain and progressed into increased swelling and erythema for which she decided to come in for evaluation he denies any trouble swallowing or breathing denies any photophobia denies any headache denies any injuries he does report history of neck surgery in the past. 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 History of Any Multi-Drug Resistant Organisms: None Reported Past Surgical History: No Surgical Hx Reported Additional Past Surgical History / Comment(s): Repair of third digit of left hand due to injury involving loss of finger, discectomy 2020 Past Anesthesia/Blood Transfusion Reactions: No Reported Reaction Past Psychological History: ADD/ADHD Smoking Status: Current every day smoker Past Alcohol Use History: Occasional Past Drug Use History: Marijuana - Past Family History Father History Unknown: Yes Additional Family Medical History / Comment(s): Family hx of Breast CA, Lung CA, and skin CA Medications and Allergies Home Medications Medication Instructions Recorded Confirmed Type No Known Home Medications 04/25/24 04/25/24 History Allergies Allergy/AdvReac Type Severity Reaction Status Date / Time macadamia nut oil Allergy Unknown Verified 04/25/24 08:05 Sulfa (Sulfonamide Allergy Unknown Verified 04/25/24 08:05 Antibiotics) Childhood Surgical - Exam Osteopathic Statement: *. No significant issues noted on an osteopathic structural exam other than those noted in the History and Physical/Consult. Vital Signs Temp Pulse Resp BP Pulse Ox 99.7 F H 112 H 18 112/59 98 04/24/24 18:55 04/24/24 18:55 04/24/24 18:55 04/24/24 18:55 04/24/24 18:55 - General gen: nad heent: atraumatic, normocephalic, eyes perrla, oral mucosa moist, neck mass(right appreciated), cellulitis cv: rrr pul: non labored breathing abd: soft, non distended, no guarding or rebound tenderness Results - Labs 04/28/24 05:19 04/28/24 05:19 Assessment and Plan Assessment: 28 yo male w/ neck cellulitis -fluid collection right neck -continue abx -NPOpmn -OR tomorrow Time with Patient: Less than 30
--- NOTE | 2024-04-29 16:32 | P.PN ---
Subjective Progress Note Date: 04/29/24 Hospital course: Patient is a pleasant 28-year-old male with a past medical history of ADHD, nicotine dependence, and occasional cannabis use. He presented to the emergency department with a chief complaint of right sided neck pain, redness, and swelling that appeared overnight. Upon arrival to our facility patient underwent evaluation in the emergency department. Vital signs upon arrival show blood pressure 112/59, heart rate 112, respiratory rate 18, temp 99.7 F, and SpO2 of 98% on room air. Labs completed and reviewed. CBC showing significant leukocytosis with WBC count of 37.3. Coagulation profile normal findings. BMP showing sodium 135, bicarb of 20, and elevated anion gap of 13. Blood glucose was 123. Lactic acid 1.6. Liver profile normal findings. Magnesium 1.8. Troponin was negative at less than 0.012. Initial CRP 18.0. Urine drug screen positive for opiates and marijuana only. CT neck with IV contrast revealing moderate subcutaneous fat stranding of the right anterior and lateral cervical soft tissues without evidence of localized abscess or drainable fluid collection. Patient mated under services with consultation to infectious disease and ENT. Urine drug screen was positive for opioids and marijuana, patient was given opioid medications during this hospitalization. Physical exam: Patient seen and fully evaluated at bedside. He continues to have mild-moderate erythema to right lateral neck into chest, but brightness of erythema continues to improve. Patient also continues to have a small area of localized swelling, but states pain is improving to the site and he denies any difficulties with swallowing. Vital signs reviewed and stable. General: Nontoxic, no distress and appears stated age. Derm: Skin warm and dry, normal coloration for ethnicity. Right lateral neck positive for erythema, swelling, extending down into right clavicular region and chest . Head: Atraumatic, normocephalic and symmetric. Eyes: EOM's intact, no lid lag, and anicteric sclera Mouth: no lip lesions, mucus membranes moist Cardiovascular: regular rate and rhythm with normal S1S2, no murmur, positive posterior tibial pulses bilaterally, and cap refill < 2 seconds. Lungs: Respirations even, regular, and unlabored on room air. Lungs CTA bilaterally, no rhonchi, no rales, no wheezing, and no accessory muscle usage. Abdominal: soft, nontender to palpation, no guarding, no appreciable organomegaly Ext: ROM intact. No gross muscle atrophy, no edema, no contractures Neuro: Speech clear, face symmetrical and CN II-XII grossly intact with no noted focal neuro deficits Psych: Alert and oriented to person, place, time, and situation. Appropriate and pleasant affect. Assessment and Plan of Care: Cellulitis right lateral neck Sepsis, secondary to above Leukocytosis, improving -Infectious disease following, discussed plan of care with Dr. Loco. -Consult placed to ENT for evaluation, Dr. Cuevas called and spoke with nurse on unit stating he will come in per CT result. -CT soft tissue of neck showing phlegmonous changes and edema in the right neck extending down into the chest up to the face with no discrete organized fluid collection reported. Ultrasound of neck reported extensive complex fluid collection seen under the skin in the right lateral neck with vascularity extending into this region and no enlarged lymph nodes identified by shovel logger, area of fluid collection measuring up to 4.7 cm in anterior Matt 8 soft tissue fascial planes. -Discussed with infectious disease physician, patient to undergo drainage of fluid collection and interventional radiology consulted at this time. -Continue symptomatic care and pain management with Tylenol 650 mg p.o. every 6 hours as needed for mild pain/fever, Toradol 15 mg IVP every 6 hours as needed for moderate pain, and morphine 4 mg IVP as needed for severe pain. -GI prophylaxis with Protonix. -DVT prophylaxis with Lovenox. -Continue IV antibiotics with vancomycin 1250 mg every 8 hours and Unasyn 3 g every 6 hours. Closely monitor renal function and vancomycin trough for any signs of vancomycin associated renal toxicity. -Aspiration precautions -Monitor pulse oximetry. -Blood cultures showing no growth to date Nicotine dependence -Recommend smoking cessation. Continue nicotine patch 14 mg daily. Data and imaging reviewed: -Vital signs reviewed. Blood pressure elevated this morning at 168/80, heart rate 56, respiratory rate 16, temp 98.1 F, and SpO2 of 96% on room air. Patient has remained afebrile for >24 hours. -Labs reviewed. CBC showing normocytic anemia with 12.0. BMP showing hyperchloremia with chloride of 112. Blood glucose 86. Magnesium 2.0. Liver profile showing h a low total protein of 5.5 and albumin of 3.4. Vancomycin trough therapeutic at 13.9. CODE STATUS: Full code DVT prophylaxis: Lovenox Discussed with: Patient, RN, and infectious disease physician. Anticipated discharge date: Pending clinical course Anticipated discharge place: Home Patient was seen independently by Nurse Pracitioner. This document was prepared using [employer] dictation software. Please allow for errors in awake overnight counselor, while rare they do occur. Rainer Geiger BLOCK SPLITTER OPERATOR rendered care for this patient independently, reviewed the findings and plan as documented in the note above and agree with plan. I did not physically speak with or examine the patient on this date. Objective - Vital Signs Vital signs: Vital Signs Temp 98.1 F 04/29/24 07:00 Pulse 56 L 04/29/24 07:00 Resp 16 04/29/24 07:00 BP 168/80 04/29/24 07:00 Pulse Ox 96 04/29/24 07:00 FiO2 Intake & Output 04/28/24 04/29/24 04/29/24 18:59 06:59 18:59 Intake Total 240 Balance 240 Intake: Oral 240 Other: Voiding Method Toilet Toilet Toilet # Voids 1 - Labs CBC & Chem 7: 04/28/24 05:19 04/28/24 05:19
[2024-04-30] MEDS: VANCOMYCIN TROUGH DUE 1 EACH MISC MISCELLANE ONE (05:32)
[2024-04-30 08:35] LABS: BUN/Creat Ratio 9.33 Ratio (12.00-20.00); Blood Urea Nitrogen 8.4 mg/dL (9.0-27.0); Calcium 8.5 mg/dL (8.7-10.3); Carbon Dioxide 22.2 mmol/L (21.6-31.8); Chloride 112 mmol/L (96-109); Glucose 94 mg/dL (70-110); Potassium 4.1 mmol/L (3.5-5.5); Sodium 143 mmol/L (135-145)
[2024-04-30 09:22] LABS: Basophils # (A) 0.09 X 10*3/uL (0.00-0.10); Eosinophils # (A) 0.37 X 10*3/uL (0.04-0.35); Eosinophils % (A) 4.3 %; HCT 35.4 % (39.6-50.0); HGB 11.9 g/dL (13.0-17.0); Lymphocytes # (A) 2.56 X 10*3/uL (0.90-5.00); Lymphocytes % (A) 29.8 %; MCH 30.2 pg (27.0-32.0); MCHC 33.6 g/dL (32.0-37.0); MCV 89.8 FL (80.0-97.0); Mean Platelet Volume 9.7 FL (9.5-12.2); Monocytes # (A) 0.54 X 10*3/uL (0.20-1.00); Monocytes % (A) 6.3 %; NRBC Per 100 WBC 0 X 10*3/uL (0.00-0.01); Neutrophils % (A) 55.9 %; Platelet Count 301 X 10*3/uL (140-440); RBC 3.94 X 10*6/uL (4.40-5.60); RDW 13.7 % (11.5-14.5); WBC 8.59 X 10*3/uL (4.50-10.00)
--- NOTE | 2024-04-30 10:44 | P.PN ---
Subjective Progress Note Date: 04/30/24 Hospital course: Patient is a pleasant 28-year-old male with a past medical history of ADHD, nicotine dependence, and occasional cannabis use. He presented to the emergency department with a chief complaint of right sided neck pain, redness, and swelling that appeared overnight. Upon arrival to our facility patient underwent evaluation in the emergency department. Vital signs upon arrival show blood pressure 112/59, heart rate 112, respiratory rate 18, temp 99.7 F, and SpO2 of 98% on room air. Labs completed and reviewed. CBC showing significant leukocytosis with WBC count of 37.3. Coagulation profile normal findings. BMP showing sodium 135, bicarb of 20, and elevated anion gap of 13. Blood glucose was 123. Lactic acid 1.6. Liver profile normal findings. Magnesium 1.8. Troponin was negative at less than 0.012. Initial CRP 18.0. Urine drug screen positive for opiates and marijuana only. CT neck with IV contrast revealing moderate subcutaneous fat stranding of the right anterior and lateral cervical soft tissues without evidence of localized abscess or drainable fluid collection. Patient mated under services with consultation to infectious disease and ENT. Urine drug screen was positive for opioids and marijuana, patient was given opioid medications during this hospitalization. CT soft tissue of neck showing phlegmonous changes and edema in the right neck extending down into the chest up to the face with no discrete organized fluid collection reported. Ultrasound of neck reported extensive complex fluid collection seen u nder the skin in the right lateral neck with vascularity extending into this region and no enlarged lymph nodes identified by story writer, area of fluid collection measuring up to 4.7 cm in anterior Matt 8 soft tissue fascial planes. Physical exam: Patient seen and fully evaluated at bedside. He reports increased pain to right lateral neck this morning continues to have moderate swelling and minimal erythema surrounding. Patient awaiting to be taken down for incision and drainage of abscess. Patient denies any difficulty swallowing or maintaining/clearing his own secretions. Vital signs reviewed and stable. General: Nontoxic, no distress and appears stated age. Derm: Skin warm and dry, normal coloration for ethnicity. Right lateral neck positive for erythema, swelling, extending down into right clavicular region and chest . Head: Atraumatic, normocephalic and symmetric. Eyes: EOM's intact, no lid lag, and anicteric sclera Mouth: no lip lesions, mucus membranes moist Cardiovascular: regular rate and rhythm with normal S1S2, no murmur, positive posterior tibial pulses bilaterally, and cap refill < 2 seconds. Lungs: Respirations even, regular, and unlabored on room air. Lungs CTA bilat erally, no rhonchi, no rales, no wheezing, and no accessory muscle usage. Abdominal: soft, nontender to palpation, no guarding, no appreciable organomegaly Ext: ROM intact. No gross muscle atrophy, no edema, no contractures Neuro: Speech clear, face symmetrical and CN II-XII grossly intact with no noted focal neuro deficits Psych: Alert and oriented to person, place, time, and situation. Appropriate and pleasant affect. Assessment and Plan of Care: Abscess with surrounding Cellulitis right lateral neck Sepsis, secondary to above Leukocytosis, improving -Infectious disease following, discussed plan of care with Dr. Loco. -Interventional radiology was consulted for drainage of abscess, notified by interventional radiology department to set fluid was too viscous and they were unable to draw up, stated they were able to draw up only what was in the needle which was sent to lab for cultures. Recommending general surgery consult for I&D with drainage. -General surgeon consulted, discussed plan of care with Dr. Ospina planning to take patient for I&D with drainage of abscess later today. -Continue symptomatic care and pain management with Tylenol 650 mg p.o. every 6 hours as needed for mild pain/fever, Toradol 15 mg IVP every 6 hours as needed for moderate pain, and morphine 4 mg IVP as needed for severe pain. -GI prophylaxis with Protonix. -DVT prophylaxis with Lovenox. -Continue IV antibiotics with vancomycin 1250 mg every 8 hours and Unasyn 3 g every 6 hours. Closely monitor renal function and vancomycin trough for any signs of vancomycin associated renal toxicity. -Aspiration precautions -Monitor pulse oximetry. -Blood cultures showing no growth to date Nicotine dependence -Recommend smoking cessation. Continue nicotine patch 14 mg daily. Asymptomatic bradycardia Data and imaging reviewed: -Vital signs reviewed. Blood pressure 130/75, heart rate 45, respiratory rate 16, temp 97.7 F, and SpO2 of 98% on room air. -Labs reviewed. CBC showing normocytic anemia with 11.9. BMP showing hyperchloremia with chloride of 112. Blood glucose 94. Magnesium 2.0. Liver profile showing h a low total protein of 5.5 and albumin of 3.4. Vancomycin trough therapeutic at 15.0. CODE STATUS: Full code DVT prophylaxis: Lovenox Discussed with: Patient, RN, general surgeon and infectious disease physician. Anticipated discharge date: Pending clinical course Anticipated discharge place: Home Patient was seen independently by Nurse Pracitioner. This document was prepared using [employer]ocality dictation software. Please allow for errors in assistant kitchen manager, while rare they do occur. Rainer Geiger NP rendered care for this patient independently, reviewed the findings and plan as documented in the note above and agree with plan. I did not physically speak with or examine the patient on this date. Objective - Vital Signs Vital signs: Vital Signs Temp 97.7 F 04/30/24 07:00 Pulse 45 L 04/30/24 07:00 Resp 16 04/30/24 07:00 BP 130/75 04/30/24 07:00 Pulse Ox 98 04/30/24 07:00 FiO2 Intake & Output 04/29/24 04/30/24 04/30/24 18:59 06:59 18:59 Intake Total 1800 540 Balance 1800 540 Intake: Oral 1800 540 Other: Voiding Method Toilet Toilet # Voids 5 2 - Labs CBC & Chem 7: 04/30/24 05:12 04/30/24 05:12 Labs: Abnormal Lab Results - Last 24 Hours (Table) 04/30/24 04/30/24 Range/Units 05:12 05:12 RBC 3.94 L (4.40-5.60) X 10*6/uL Hgb 11.9 L (13.0-17.0) g/dL Hct 35.4 L (39.6-50.0) % Immature Gran # 0.23 H (0.00-0.04) X 10*3/uL Eosinophils # 0.37 H (0.04-0.35) X 10*3/uL Chloride 112 H (96-109) mmol/L BUN 8.4 L (9.0-27.0) mg/dL BUN/Creatinine Ratio 9.33 L (12.00-20.00) Ratio Calcium 8.5 L (8.7-10.3) mg/dL Microbiology - Last 24 Hours (Table) 04/24/24 19:45 Blood Culture - Final Blood
[2024-04-30 11:27] LABS: INR 1.03 sec (0.93-1.11); Prothrombin Time 11.5 sec (9.9-11.9)
[2024-04-30] MEDS: IV FLUID CONTINUATION 1,000 ML IV ONE (14:39)
[2024-04-30] MEDS: ONDANSETRON 4 MG/2 ML VIAL IVP STA (14:51)
[2024-04-30] MEDS: DEXAMETHASONE SOD PHOSPHATE 4 MG/ML 1 ML VIAL IVP STA (14:51)
[2024-04-30] MEDS ORDERED: KETOROLAC 15 MG/ML 1 ML VIAL ONE (15:10)
[2024-04-30] MEDS ORDERED: LIDOCAINE 1% INJ 10MG/ML (20 ML MDV) ONE (15:10)
[2024-04-30] MEDS ORDERED: PROPOFOL 10 MG/ML 20 ML VIAL IV ONE (15:10)
[2024-04-30] MEDS ORDERED: fentaNYL (PF) 50 MCG/ML 2 ML AMP ONE (15:10)
[2024-04-30] MEDS ORDERED: MIDAZOLAM 2 MG/2 ML VIAL ONE (15:10)
[2024-04-30 16:06] VITALS: RESP 16
--- NOTE | 2024-04-30 16:21 | P.DS ---
Providers Date of admission: 04/25/24 00:26 Expected date of discharge: 04/30/24 Attending physician: Cardiad Temple MD Consults: 04/25/24 08:28 Consult Physician Routine Consulting Provider: Naeem Loco Consult Reason/Comments: CELLULITIS NECK, SEPSIS Do you want consulting provider notified?: Yes 04/25/24 14:54 Consult Physician Routine Consulting Provider: Madhu Cuevas Consult Reason/Comments: cellulitis neck Do you want consulting provider notified?: Yes 04/29/24 15:44 Consult Physician Routine Consulting Provider: Wilman Ospina Consult Reason/Comments: skin abscess, R lateral neck Do you want consulting provider notified?: Yes Primary care physician: Stated None Hospital Course: Discharge Diagnosis: Abscess with surrounding Cellulitis right lateral neck Sepsis on admission, secondary to above Leukocytosis, resolved and patient has remained afebrile for greater than 48 hours blood culture showed no growth to date. Wound cultures were obtained and infectious disease physician to follow-up with results outpatient and make changes to patient's antibiotic regimen if indicated based upon these findings. Nicotine dependence. Recommend smoking cessation. Asymptomatic bradycardia Hospital course: Patient is a pleasant 28-year-old male with a past medical history of ADHD, nicotine dependence, and occasional cannabis use. He presented to the emergency department with a chief complaint of right sided neck pain, redness, and swelling that appeared overnight. Upon arrival to our facility patient underwent evaluation in the emergency department. Vital signs upon arrival show blood pressure 112/59, heart rate 112, respiratory rate 18, temp 99.7 F, and SpO2 of 98% on room air. Labs completed and reviewed. CBC showing significant leukocytosis with WBC count of 37.3. Coagulation profile normal findings. BMP showing sodium 135, bicarb of 20, and elevated anion gap of 13. Blood glucose was 123. Lactic acid 1.6. Liver profile normal findings. Magnesium 1.8. Troponin was negative at less than 0.012. Initial CRP 18.0. Urine drug screen positive for opiates and marijuana only. CT neck with IV contrast revealing moderate subcutaneous fat stranding of the right anterior and lateral cervical soft tissues without evidence of localized abscess or drainable fluid collection. Patient mated under services with consultation to infectious disease and ENT. Urine drug screen was positive for opioids and marijuana, patient was given opioid medications during this hospitalization. CT soft tissue of neck showing phlegmonous changes and edema in the right neck extending down into the chest up to the face with no discrete organized fluid collection reported. Ultrasound of neck reported extensive complex fluid collection seen under the skin in the right lateral neck with vascularity extending into this region and no enlarged lymph nodes identified by health advocate, area of fluid collection measuring up to 4.7 cm and interdiglates soft tissue fascial planes. Interventional radiology was consulted for needle drainage, but due to viscosity of liquid was unable to drain. General surgeon consulted and took patient for I&D. Discussed with general surgeon successful I&D and repeat cultures were obtained. Infectious disease clearing patient for discharge home on Augmentin and linezolid stating he will follow-up with wound cultures outpatient and make antibiotic changes if indicated based upon these results. A total of 31 minutes of time were spent preparing this complex discharge summary. Pt was discharged on 04/30/2024 at 4:14 PM and RN instructed patient not to leave until 6 PM per general surgeon. Patient was seen independently by Nurse Practitioner. This document was prepared using [email or web address] dictation software. Please allow for errors in air press operator while rare they do occur. Rainer Geiger NP rendered care for this patient independently, reviewed the findings and plan as documented in the note above. I did not physically speak with or examine the patient on this date. Patient Condition at Discharge: Stable Plan - Discharge Summary Discharge Rx Participant: Yes New Discharge Prescriptions: New Amoxic-Pot Clav 875-125Mg [Augmentin 875-125] 1 tab PO Q12HR 10 Days #20 tab HYDROcodone/APAP 5-325MG [[place] 5-325] 1 each PO Q4HR PRN #18 tab PRN Reason: Moderate Pain (Scale 4 To 6) Linezolid [Zyvox] 600 mg PO Q12H #20 tab Discharge Medication List Amoxic-Pot Clav 875-125Mg [Augmentin 875-125] 1 tab PO Q12HR 10 Days #20 tab 04/30/24 [Rx] HYDROcodone/APAP 5-325MG [[place] 5-325] 1 each PO Q4HR PRN #18 tab 04/30/24 [Rx] Linezolid [Zyvox] 600 mg PO Q12H #20 tab 04/30/24 [Rx] Follow up Appointment(s)/Referral(s): Wilman Ospina DO [Doctor of Osteopathic Medicine] - 1 Week [facility] [NON-STAFF] - 1-2 Days Naeem Loco MD [STAFF PHYSICIAN] - 1 Week Patient Instructions/Handouts: Cellulitis (GEN), Abscess (GEN), Incision and Drainage (DC) Activity/Diet/Wound Care/Special Instructions: Activity: As tolerated. You may shower but no tub soaks or submersion of incision site underwater. Diet: Resume regular diet Special Instructions: Take all of your medications as directed and remember to keep all of your doctor's appointments and follow-up as needed. As instructed by general surgeon, postoperative packing may be removed tomorrow as discussed with you at bedside by Dr. Ospina. Dr. Loco will follow-up with your wound culture results and notify you if any changes are needed to your current antibiotic regimen. Thank you for allowing us to participate in your care, it was truly a pleasure having you for our patient!!! Discharge Disposition: HOME SELF-CARE
[2024-04-30 16:44] VITALS: TEMP 97.6
--- NOTE | 2024-04-30 17:49 | P.PN ---
Subjective Progress Note Date: 04/30/24 Principal diagnosis: Reason for follow-up is neck cellulitis Patient is a 28-year male with a past medical history significant for asthma ADHD currently everyday smoker presenting to the hospital for evaluation of right-sided neck swelling and redness that apparently happened overnight patient mentioned started a small pimple subsequently being significant cellulitis to the right side of the neck CT was negative for any abscess. On today's evaluation that is 04/30/2024,the patient denies any fever or any chills, patient is breathing comfortably on room air, the patient denies chest pain shortness of breath and no significant cough, patient denies abdominal pa in, no nausea vomiting or diarrhea. Pain to the neck area has not decreased intensity has been consistent with going home. The patient white count is 8.59 creatinine 0.9 Objective - Vital Signs Vital signs: Vital Signs Temp 97.7 F 04/30/24 07:00 Pulse 45 L 04/30/24 07:00 Resp 16 04/30/24 07:00 BP 130/75 04/30/24 07:00 Pulse Ox 98 04/30/24 07:00 FiO2 Intake & Output 04/29/24 04/30/24 04/30/24 18:59 06:59 18:59 Intake Total 1800 540 Balance 1800 540 Intake: Oral 1800 540 Other: Voiding Method Toilet Toilet # Voids 5 2 - Exam GENERAL DESCRIPTION: An elderly male lying in bed in no distress HEENT: Right-sided neck redness has slightly decreased however there is an area of induration more pronounced now RESPIRATORY SYSTEM: Unlabored breathing , decreased breath sounds at bases HEART: S1 S2 regular rate and rhythm , ABDOMEN: Soft , no tenderness EXTREMITIES: No edema feet - Labs CBC & Chem 7: 04/30/24 05:12 04/30/24 05:12 Labs: Abnormal Lab Results - Last 24 Hours (Table) 04/30/24 04/30/24 Range/Units 05:12 05:12 RBC 3.94 L (4.40-5.60) X 10*6/uL Hgb 11.9 L (13.0-17.0) g/dL Hct 35.4 L (39.6-50.0) % Immature Gran # 0.23 H (0.00-0.04) X 10*3/uL Eosinophils # 0.37 H (0.04-0.35) X 10*3/uL Chloride 112 H (96-109) mmol/L BUN 8.4 L (9.0-27.0) mg/dL BUN/Creatinine Ratio 9.33 L (12.00-20.00) Ratio Calcium 8.5 L (8.7-10.3) mg/dL Microbiology - Last 24 Hours (Table) 04/24/24 19:45 Blood Culture - Final Blood Assessment and Plan (1) Sepsis Current Visit: Yes Status: Acute Code(s): A41.9 - SEPSIS, UNSPECIFIED ORGANISM SNOMED Code(s): 64201527 (2) Cellulitis, neck Current Visit: Yes Status: Acute Code(s): L03.221 - CELLULITIS OF NECK SNOMED Code(s): 12850351 Plan: 1patient presented hospital with sepsis in this patient noted to have fever tachycardia elevated white count meeting criteria for SIRS source is likely right-sided neck cellulitis started a small pimple more likely representing staphylococcal cellulitis without evidence of abscess seen on the CT 2patient did have resolution of his fever and the white count has normalized however the patient has an area of induration concerning for possible developing of an abscess 3ultrasound of the neck suspicious for development of abscess, IR has been consulted for drainage fluid should be sent for culture possible drainage by general surgery this afternoon has the patient had been stable going home and does not want to stay and wait for the culture results we will suggest a 10-day course of oral Zyvox and Augmentin prescription sent culture results will be followed in the close the patient follow-up care discussed with the [facility] [employer] OPERATOR for admitting team Dictation was produced using [employer] dictation software. please excuse any grammatical, word or spelling errors.
[2024-04-30 17:59] VITALS: BP 161/85; PULSE 52
--- NOTE | 2024-05-07 22:22 | P.OP ---
Date of Procedure: 04/30/24 Preoperative Diagnosis: Neck abscess Postoperative Diagnosis: Neck abscess Procedure(s) Performed: Sharp incision and drainage of neck abscess Anesthesia: EMILE Surgeon: Wilman Ospina Pathology: other (Culture) Condition: stable Disposition: PACU Indications for Procedure: Neck abscess Operative Findings: A small amount of purulent material removed from neck abscess Description of Procedure: Patient was brought to the operating room where he was cleaned and draped in sterile fashion a timeout was performed and everyone agreed with the information recited next a #15 blade was used to make a transverse incision along the right lateral neck I dissect down with a combination of electrocautery and hemostat. I was able to dissect down through the platysma anterior to the carotid sheath where I encountered a moderate amount of purulent material that was removed and irrigated with normal saline. Hemostatic timeout was performed and no bleeding was observed I then packed this area with iodoform gauze. The patient tolerated the procedure well and was transported to PACU in stable condition
== END 2024-04-30 17:58 | disposition home or self-care (01) | DRG 872 ==
LOC: EC 18:23 → 6NMEDSUR 04-25 00:25 → OBSVTOIN 04-25 00:26 → 6NMEDSUR 04-25 12:21 → 5NMEDONC 04-28 07:55
PROVIDERS: ADMIT Internal Medicine; ATTEND Internal Medicine
PROC: 0JB43ZX Excision of Right Neck Subcutaneous Tissue and Fascia, Percutaneous Approach, Diagnostic (ICD-10-PCS; principal; 2024-04-29)
DX: A41.9 Sepsis, unspecified organism (principal); L03.221 Cellulitis of neck; F14.10 Cocaine abuse, uncomplicated; J45.909 Unspecified asthma, uncomplicated; L02.11 Cutaneous abscess of neck; F17.210 Nicotine dependence, cigarettes, uncomplicated; F90.9 Attention-deficit hyperactivity disorder, unspecified type; Z80.1 Family history of malignant neoplasm of trachea, bronchus and lung; Z80.3 Family history of malignant neoplasm of breast; Z71.6 Tobacco abuse counseling; Z88.2 Allergy status to sulfonamides; Z91.018 Allergy to other foods
CPT/HCPCS: 10030; 36415; 70491; 76536; 76942; 80048; 80053; 80202; 80306; 82565; 83605; 83735; 83880; 84100; 84484; 85025; 85027; 85610; 85652; 85730; 86140; 87040; 87070; 87075; 87077; 87186; 87205; 93005; 96361; 96365; 96366; 96367; 96372; 96375; 96376; 99285

== ENCOUNTER 2024-07-22 23:12 | Emergency (ER) | payer BC ==
[2024-07-22 23:19] VITALS: TEMP 98.9
--- NOTE | 2024-07-22 23:38 | ED ---
Wound/Laceration HPI - General Chief Complaint: Wound/Laceration Stated Complaint: L hand laceration Time Seen by Provider: 07/22/24 23:30 Source: patient, RN notes reviewed Mode of arrival: ambulatory Limitations: no limitations - History of Present Illness Initial Comments: This is a 29-year-old male presenting for injury to left hand occurring around 1330 today. Patient states he was moving scrap metal/material when he received a cut in his left hand. Patient states pain was no appreciable pain at the time but it has worsened throughout the day. Endorses associated tingling in his 4th and 5th digits and states pain is worse with movement (7/10). States his tetanus vaccination is not up-to-date. Denies any other significant injuries. Onset/Timin -: hour(s) Time: 13:30 Extremity Location: Left: Hand Place: outdoors Patient Tetanus UTD: No Context: accidental Associated Symptoms: pain, loss of feeling/numbness - Related Data Previous Rx's Medication Instructions Recorded Amoxic-Pot Clav 875-125Mg 1 tab PO Q12HR 10 Days #20 tab 04/30/24 [Augmentin 875-125] HYDROcodone/APAP 5-325MG [Archer 1 each PO Q4HR PRN #18 tab 04/30/24 5-325] Linezolid [Zyvox] 600 mg PO Q12H #20 tab 04/30/24 Bacitracin/Polymyx Oint 1 applic TOPICAL BID #15 gm 07/22/24 [Polysporin Oint] Cephalexin [Keflex] 500 mg PO Q6HR 1 Days #12 cap 07/22/24 Allergies Allergy/AdvReac Type Severity Reaction Status Date / Time macadamia nut oil Allergy Unknown Verified 07/22/24 23:19 Sulfa (Sulfonamide Allergy Unknown Verified 07/22/24 23:19 Antibiotics) Childhood Review of Systems ROS Statement: Those systems with pertinent positive or pertinent negative responses have been documented in the HPI. ROS Other: All systems not noted in ROS Statement are negative. 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 History of Any Multi-Drug Resistant Organisms: None Reported Past Surgical History: No Surgical Hx Reported Additional Past Surgical History / Comment(s): Repair of third digit of left hand due to injury involving loss of finger, discectomy 2020 Past Anesthesia/Blood Transfusion Reactions: No Reported Reaction Past Psychological History: ADD/ADHD Smoking Status: Current every day smoker Past Alcohol Use History: Occasional Past Drug Use History: Marijuana - Past Family History Father History Unknown: Yes Additional Family Medical History / Comment(s): Family hx of Breast CA, Lung CA, and skin CA General Exam Limitations: no limitations General appearance: alert, in no apparent distress Head exam: Present: atraumatic, normocephalic, normal inspection Eye exam: Present: normal appearance, PERRL, EOMI. Absent: scleral icterus, conjunctival injection, periorbital swelling ENT exam: Present: normal exam, mucous membranes moist Neck exam: Present: normal inspection. Absent: tenderness, meningismus, lymphadenopathy Respiratory exam: Present: normal lung sounds bilaterally. Absent: respiratory distress, wheezes, rales, rhonchi, stridor Cardiovascular Exam: Present: regular rate, normal rhythm, normal heart sounds. Absent: systolic murmur, diastolic murmur, rubs, gallop, clicks GI/Abdominal exam: Present: soft, normal bowel sounds. Absent: distended, tenderness, guarding, rebound, rigid Extremities exam: Present: full ROM, tenderness, normal capillary refill, other (0.5 cm horizontal laceration noted on dorsal aspect of left hand over fourth metacarpal with associated surrounding tenderness. No appreciable/palpable foreign body visualized or palpated any skin. No significant bleeding, erythema, discharge, crepitus). Absent: pedal edema, joint swelling, calf tenderness Back exam: Present: normal inspection Neurological exam: Present: alert, oriented X3, CN II-XII intact Psychiatric exam: Present: normal affect, normal mood Skin exam: Present: warm, dry, intact, normal color. Absent: rash Course Vital Signs 07/22/24 23:16 Temperature 98.9 F Pulse Rate 50 L Respiratory 18 Rate Blood Pressure 146/78 O2 Sat by Pulse 99 Oximetry Procedures - Laceration Laceration #1 Consent Obtained: verbal consent Indication: laceration Site: hand Size (cm): 1 Description: linear Depth: simple, single layer Anesthetic Used: lidocaine 1% Anesthesia Technique: local infiltration Amount (mls): 1 Pre-repair: wound explored, irrigated extensively Type of Sutures: nylon Size of Sutures: 5-0 Number of Sutures: 2 Technique: simple, interrupted Patient Tolerated Procedure: well, no complications Medical Decision Making - Medical Decision Making Was pt. sent in by a medical professional or institution (LOREN[facility] Andujar, [employer]CH[employer], urgent care, hospital, or prison...) When possible be specific @ -[No] Did you speak to anyone other than the patient for history (EMS, parent, family, police, friend...)? What history was obtained from this source @ -[No] Did you review nursing and triage notes (agree or disagree)? Why? @ -[I reviewed and agree with nursing and triage notes] Were old charts reviewed (outside hosp., previous admission, EMS record, old EKG, old radiological studies, urgent care reports/EKG's, prison records)? Report findings @ -[No old charts were reviewed] Differential Diagnosis (chest pain, altered mental status, abdominal pain women, abdominal pain men, vaginal bleeding, weakness, fever, dyspnea, syncope, headache, dizziness, GI bleed, back pain, seizure, CVA, palpatations, mental health, musculoskeletal)? @ -Differential Musculoskeletal Muscular strain, contusion, ligament sprain, fracture, arthritis, septic arthritis, bursitis, cellulitis, muscle spasm, nerve compression, DVT, arterial occlusion, herpes zoster, electrolyte abnormality, tumor.... This is not meant to be in all inclusive list EKG interpreted by me (3pts min.). @ -Not done X-rays interpreted by me (1pt min.). @ -Left hand x-ray shows no obvious foreign body CT interpreted by me (1pt min.). @ -[None done] U/S interpreted by me (1pt. min.). @ -[None done] What testing was considered but not performed or refused? (CT, X-rays, U/S, labs)? Why? @ -[None] What meds were considered but not given or refused? Why? @ -[None] Did you discuss the management of the patient with other professionals (professionals i.e. LORENZO Andujar, [employer]CHIT[employer], lab, RT, psych nurse, social media coordinator, card game operator, teacher, weapons officer naval activity, manager case management)? Give summary @ -[No] Was smoking cessation discussed for >3mins.? @ -[No] Was critical care preformed (if so, how long)? @ -[No] Were there social determinants of health that impacted care today? How? (Homelessness, low income, unemployed, alcoholism, drug addiction, transportation, low edu. Level, literacy, decrease access to med. care, snf, rehab)? @ -[No] Was there de-escalation of care discussed even if they declined (Discuss DNR or withdrawal of care, Hospice)? DNR status @ -[No] What co-morbidities impacted this encounter? (DM, HTN, Smoking, COPD, CAD, Cancer, CVA, ARF, Chemo, Hep., AIDS, mental health diagnosis, sleep apnea, morbid obesity)? @ -[None] Was patient admitted / discharged? Hospital course, mention meds given and route, prescriptions, significant lab abnormalities, going to OR and other pertinent info. @ -[hospital course] Undiagnosed new problem with uncertain prognosis? @ -[No] Drug Therapy requiring intensive monitoring for toxicity (Heparin, Nitro, Insulin, Cardizem)? @ -[No] Were any procedures done? @ -[No] Diagnosis/symptom? @ -Hand laceration Acute, or Chronic, or Acute on Chronic? @ -Acute Uncomplicated (without systemic symptoms) or Complicated (systemic symptoms)? @ -Uncomplicated Side effects of treatment? @ -[No] Exacerbation, Progression, or Severe Exacerbation? @ -[No] Poses a threat to life or bodily function? How? (Chest pain, [place], [place], pneumonia, PE, COPD, DKA, ARF, appy, cholecystitis, CVA, Diverticulitis, Homicidal, Suicidal, threat to staff... and all critical care pts) @ -[No] Disposition Clinical Impression: Laceration Disposition: HOME SELF-CARE Condition: Good Instructions (If sedation given, give patient instructions): Care For Your Stitches (ED) Additional Instructions: Keep wound clean with antibacterial soap and water along with dressing change at least twice daily. Prescriptions: Cephalexin [Keflex] 500 mg PO Q6HR 1 Days #12 cap Bacitracin/Polymyx Oint [Polysporin Oint] 1 applic TOPICAL BID #15 gm Is patient prescribed a controlled substance at d/c from ED?: No Referrals: Dawson Saeed Jr, [Primary Care Provider] - 1-2 days Time of Disposition: 00:02
[2024-07-22] MEDS: LIDOCAINE 1% INJ 10MG/ML (20 ML MDV) SQ ONE (23:43)
[2024-07-22] MEDS: CEPHALEXIN 500 MG CAP PO STA (23:43)
[2024-07-22] MEDS: DIPH,PERTUS(ACELL)TETVAC-LF 0.5 ML VIAL IM ONE (23:44)
[2024-07-22] MEDS: ACETAMINOPHEN TAB 500 MG TAB PO STA (23:49)
[2024-07-22] MEDS: IBUPROFEN 600 MG TAB PO STA (23:50)
[2024-07-23 00:31] VITALS: BP 129/74; PULSE 56; RESP 16
--- NOTE | 2024-07-23 01:54 | XR ---
EXAM: XR Left Hand Complete, 3 or More Views CLINICAL HISTORY: ITS.REASON XR Reason: Concern for foreign body TECHNIQUE: Frontal, lateral and oblique views of the left hand. COMPARISON: No relevant prior studies available. FINDINGS: Bones/joints: Unremarkable. No acute fracture. No dislocation. Soft tissues: Small radiopaque density in the thumb soft tissues measuring 1.2 x 0.9 mm, at the level of the interphalangeal joint. IMPRESSION: Small radiopaque density in the thumb soft tissues measuring 1.2 x 0.9 mm, at the level of the interphalangeal joint.
== END 2024-07-23 00:30 | disposition home or self-care (01) ==
LOC: EC 23:12
DX: S61.412A Laceration without foreign body of left hand, initial encounter (principal); F17.200 Nicotine dependence, unspecified, uncomplicated; Z88.2 Allergy status to sulfonamides; Z91.018 Allergy to other foods; Z23 Encounter for immunization; W45.8XXA Other foreign body or object entering through skin, initial encounter
CPT/HCPCS: 73130; 90715; 99283; 90471; 12001; J2003